=== PATIENT | female | born 2000 | race Caucasian/White ===

== ENCOUNTER 2020-04-12 14:08 | Outpatient (REF) | payer MEDICAID, SELFPAY | END 2020-04-12 14:09 | disposition home or self-care (01) | LOC: HO.LAB 14:08 | PROVIDERS: Visit Provider Internal Medicine | DX: Z20.828 Contact with and (suspected) exposure to other viral communicable diseases (principal) | CPT/HCPCS: C9803; U0003 ==

== ENCOUNTER 2020-05-29 20:55 | Emergency (ER) | payer MEDICAID, SELFPAY ==
--- NOTE | ~2020-05-29 | XR_ITS ---
EXAMINATION: XR FOOT, RIGHT CLINICAL INFORMATION: Trauma. Fall. COMPARISON: None TECHNIQUE: AP, lateral, and oblique views of the right foot. FINDINGS: The bones and soft tissues are normal. No fracture. Alignment is anatomic. Joint spaces are maintained. XR/XR foot RT min 3V IMPRESSION: Normal right foot.
[2020-05-29 22:28] VITALS: BP 117/72; PULSE 75; RESP 18; TEMP 36.7; O2SAT 100; BMI 29.5
--- NOTE | 2020-05-29 22:37 | ED.LOWEXIN ---
HPI - Extremity Injury (Lower) General Chief Complaint: Extremity Injury, Lower Stated Complaint: FALL Time Seen by Provider: 05/29/20 22:37 Source: patient Mode of arrival: ambulatory Limitations: no limitations History of Present Illness HPI Narrative: Patient slipped on black ice just prior to arrival complaining of pain in the right foot no deformity no other injuries Related Data Previous Rx's Medication Instructions Recorded ibuprofen 600 mg PO Q6H PRN #20 tab 05/29/20 Allergies Allergy/AdvReac Type Severity Reaction Status Date / Time No Known Allergies Allergy Verified 05/29/20 22:31 [No Known Allergies*] Review of Systems Review of Systems: Yes all other systems are reviewed and are negative PMFSH Past Medical History Medical History Patient denies significant medical history Surgical History No significant past surgical history Social History Social History Advance Directives: No Physical Exam Vital Signs: Vital Signs: Last Vital Signs Temp 98.0 F 05/29/20 22:28 Pulse 70 05/29/20 23:21 Resp 18 05/29/20 23:21 BP 120/70 05/29/20 23:21 Pulse Ox 98 05/29/20 23:21 Body Mass Index 29.5 Const: General: comfortable and no acute distress HENMT: Head: Yes normocephalic and Yes atraumatic Extrem: Ankle/foot/toe images: 1. Diffuse tenderness no deformity neurovascularly intact MDM - Extremity Injury (Lower) MDM Narrative Medical decision making narrative: Patient x-ray negative for any fracture discharge patient home on ibuprofen and apply Ejsu wrap Discharge Plan Discharge Clinical Impression: Sprain of foot, right Patient Disposition: Home, Self-Care Instructions: Foot Sprain (ED) Prescriptions: New ibuprofen 600 mg tablet 600 mg PO Q6H PRN (Reason: pain) Qty: 20 RF: 0 Stand Alone Forms: Work/School Release Interventions: ED Discharge Assessment Last Done: 05/29/20 23:41 Discharge Date/Time: 05/29/20 23:42 Print Language: Bengali
[2020-05-29] MEDS: Ibuprofen 600 MG TABLET PO (23:10)
[2020-05-29 23:21] VITALS: BP 120/70; PULSE 70; RESP 18; O2SAT 98
== END 2020-05-29 23:42 | disposition home or self-care (01) ==
PROVIDERS: Emergency Provider Internal Medicine
DX: S93.601A Unspecified sprain of right foot, initial encounter (principal); W00.0XXA Fall on same level due to ice and snow, initial encounter; Y93.9 Activity, unspecified; Y92.014 Private driveway to single-family (private) house as the place of occurrence of the external cause; Y99.9 Unspecified external cause status
CPT/HCPCS: 73630; 99283; 99284

== ENCOUNTER 2022-01-27 09:41 | Outpatient (REF) | payer MEDICAID, SELFPAY ==
[2022-01-27 11:42] LABS: Estimated Average Glucose 97 mg/dL
[2022-01-27 11:58] LABS: Alanine Aminotransferase 8 U/L (0-31); Albumin Level 4.4 g/dL (3.5-5.0); Alkaline Phosphatase 52 U/L (39-117); Anion Gap 15 (12-20); Aspartate Amino Transferase 15 U/L (5-31); Bilirubin Total 0.4 mg/dL (0.0-1.0); Blood Urea Nitrogen 6 mg/dL (9-16); Calcium 9.5 mg/dL (8.4-10.2); Carbon Dioxide 27 mmol/L (22-29); Chloride 104 mmol/L (96-108); Cholesterol 138 mg/dL; Estimated Glomerular Filt Rate > 60; Glucose Random 100 mg/dL (60-115); HDL Cholesterol 27 mg/dL; LDL Cholesterol Calculated 91 mg/dl; Potassium 4.4 mmol/L (3.3-5.1); Sodium 142 mmol/L (135-145); Total Protein 7.8 g/dL (6.5-8.0); Triglycerides 103 mg/dL
== END 2022-01-27 09:42 | disposition home or self-care (01) ==
LOC: HO.LAB 09:41
PROVIDERS: Visit Provider General Practice
DX: E66.3 Overweight (principal)
CPT/HCPCS: 36415; 80053; 80061; 83036

== ENCOUNTER 2022-05-27 09:51 | Emergency (ER) | payer MEDICAID, SELFPAY ==
--- NOTE | ~2022-05-27 | CT_ITS ---
EXAMINATION: CT abdomen pelvis w IV con CLINICAL INFORMATION: Abdominal pain COMPARISON: No prior CT available for comparison. TECHNIQUE: Multidetector volumetric imaging was performed from the superior aspect of the liver through the pubic symphysis 85 mL Omnipaque 350 injected. Sagittal and coronal reformatted images were obtained on the technologist's workstation. This CT examination was performed using dose optimization techniques as appropriate, variously including the following: *Automated exposure control *Adjustment of mA and/or kV according to patient size (this includes techniques or standardized protocols for targeted exams where dose is matched to indication/reason for exam; i.e. extremities or head) *Use of iterative reconstruction technique DLP: 341. mGy-cm FINDINGS: LOWER THORAX: Included lung bases are clear. HEPATOBILIARY: No focal hepatic lesions. No biliary ductal dilatation. GALLBLADDER: Gallbladder unremarkable. SPLEEN: Spleen is normal in size. PANCREAS: No focal mass or ductal dilatation. STOMACH AND GASTROINTESTINAL TRACT: Stomach is grossly unremarkable. Excess amount of stool in the colon and rectum suggests constipation. No CT evidence of appendicitis. ADRENALS: No adrenal nodules. KIDNEYS/URETERS: No hydronephrosis, stones or solid mass lesions. URINARY BLADDER: Partially decompressed. PELVIC VISCERA: Unremarkable PERITONEUM: No free air or fluid. LYMPH NODES: No lymphadenopathy. VASCULAR:Abdominal aorta normal in size, no aneurysm found. BONES, ABDOMINAL WALL AND SOFT TISSUES: Age-appropriate changes of the spine and skeletal system, no destructive osteolytic or osteosclerotic bone lesion found CT/CT abdomen pelvis w IV con IMPRESSION: * No CT evidence of acute intra-abdominal process to explain patient's pain symptoms. * Excess amount of stool in the colon and rectum suggests constipation.
[2022-05-27 09:54] VITALS: BP 96/44; PULSE 90; RESP 16; TEMP 36.9; O2SAT 98; BMI 23.0
[2022-05-27 10:05] LABS: MANUAL DIFF FLAG NO
[2022-05-27 10:07] LABS: Basophils Percent Auto 0.1 % (0-2); Eosinophils Percent Auto 0.3 % (0-4); Hematocrit 38.5 % (37.0-47.0); Hemoglobin 13.2 g/dl (12.0-16.0); Imm Gran Abs Auto 0.05 X10*3/uL (0.00-0.03); Imm Gran Pct Auto 0.4 % (0.0-0.4); Lymphocytes Absolute Auto 1.1 X10*3/uL (1.2-4.9); Lymphocytes Percent Auto 7.7 % (20-40); Mean Corpuscular HGB Conc 34.3 g/dl (31.0-35.0); Mean Corpuscular Hemoglobin 30.6 pg (27.0-33.0); Mean Corpuscular Volume 89.3 fL (80.0-98.0); Mean Platelet Volume 10.2 fL (9.4-12.3); Monocytes Absolute Auto 0.9 X10*3/uL (0.1-1.2); Monocytes Percent Auto 6.4 % (2-11); Neutrophils Absolute Auto 11.8 x10*3/uL (2.0-8.3); Neutrophils Percent Auto 85.1 % (45-73); Platelet Count 148 X10*3/uL (160-400); Red Blood Count 4.31 X10*6/uL (4.20-5.50); Red Cell Distribution Width 12.4 % (11.0-16.0); White Blood Count 13.9 X10*3/uL (4.8-10.8)
[2022-05-27 10:30] LABS: Anion Gap 14 (12-20); Blood Urea Nitrogen 7 mg/dL (9-16); Carbon Dioxide 24 mmol/L (22-29); Chloride 107 mmol/L (96-108); Creatinine Clr Calc Pharmacy 84.6; Estimated Glomerular Filt Rate > 60; Glucose Random 98 mg/dL (60-115); Sodium 141 mmol/L (135-145)
[2022-05-27 10:44] LABS: Influenza A PCR NEGATIVE (Negative); Influenza B PCR NEGATIVE (Negative); Resp Syncy Virus RNA Qual PCR NEGATIVE (Negative); SARS COV2 PCR INHOUSE NEGATIVE (Negative)
[2022-05-27] MEDS: 0.9 % Sodium Chloride 1,000 ML 999 ML IVCONT (10:56)
[2022-05-27 10:58] LABS: Alanine Aminotransferase 7 U/L (0-31); Albumin Level 4.3 g/dL (3.5-5.0); Alkaline Phosphatase 41 U/L (39-117); Aspartate Amino Transferase 13 U/L (5-31); Bilirubin Direct 0.3 mg/dL (0.0-0.5); C Reactive Protein 0.26 mg/dL (< or = 0.50); Lipase 21 U/L (8-78); Magnesium 1.6 mg/dL (1.6-2.6); Total Protein 7.1 g/dL (6.5-8.0)
[2022-05-27 11:00] LABS: HCG Quantitative < 2 mIU/mL
[2022-05-27 11:13] VITALS: TEMP 37.8
[2022-05-27] MEDS: Acetaminophen 325 MG TABLET 975 MG PO (11:13)
[2022-05-27] MEDS: ondansetron HCL 4 MG/2 ML VIAL IVPUSH (11:13)
[2022-05-27] MEDS: Ketorolac Tromethamine 30 MG/ML VIAL IVPUSH (11:13)
[2022-05-27 11:25] LABS: Erythrocyte Sedimentation Rate 8 MM/HR (0-20)
[2022-05-27 11:26] LABS: IDNOW Serial# 6674DD1D; Strep A Nucleic Acid Positive (Negative)
--- NOTE | 2022-05-27 11:31 | ED.ABDPAIN ---
HPI - Abdominal Pain General Chief Complaint: Abdominal Pain Stated Complaint: fever, flu like symptoms Time Seen by Provider: 05/27/22 10:31 Source: patient and family (Significant other at bedside) Mode of arrival: ambulatory Limitations: no limitations History of Present Illness HPI narrative: 21yoF c No Sig PMHx of PSHx who is presenting to the ER with her significant other at bedside with complaints of fevers, chills, fatigue, malaise, headaches, dizziness, sore throat, nausea/vomiting and left lower quadrant abdominal pain. She reports that the abdominal pain started approximately 1 week ago and has been intermittent. She reports the other symptoms started yesterday. She reports her co-worker did test positive for influenza recently. Otherwise she denies any other sick contacts. She denies any measured neck pain/stiffness, ear pain, cough, sputum production, trouble swallowing or breathing, chest pain or shortness of breath, back pain, flank pain, dysuria, hematuria, abnormal vaginal discharge, black or bloody stools, rashes, recent antibiotic usage, possible bad food exposure, rashes or any other symptoms complaints or concerns at this time. MD elicited complaint: abdominal pain Onset (ago): week(s) (1) Pain Consistency: intermittent Location: LLQ Severity: moderate Quality: cramping and aching Radiation: none Migration to: no migration Exacerbating factors: nothing Relieving factors: nothing Context: sick contacts (Co-worker tested positive for influenza patient reports) Associated symptoms: nausea, vomiting, fever, chills and other (Sore throat) Related Data Previous Rx's Medication Instructions Recorded ibuprofen 600 mg tablet 600 mg PO Q6H PRN pain #20 tabs 05/29/20 acetaminophen 500 mg tablet 1,000 mg PO QID PRN fever or pain 05/27/22 (Tylenol Extra Strength) #14 tabs amoxicillin 875 mg-potassium 1 tab PO BID 10 days #20 tabs 05/27/22 clavulanate 125 mg tablet docusate sodium 50 mg capsule 50 mg PO BID For constipation #14 05/27/22 (Colace Clear) caps ibuprofen 800 mg tablet 800 mg PO Q8H PRN pain #14 tabs 05/27/22 ondansetron HCl 4 mg tablet 4 mg PO Q8H #14 tabs 05/27/22 polyethylene glycol 3350 17 17 g PO DAILY Constipation #119 05/27/22 gram/dose oral powder (Miralax) grams Allergies Allergy/AdvReac Type Severity Reaction Status Date / Time No Known Allergies Allergy Verified 05/29/20 22:31 [No Known Allergies*] Review of Systems Review of Systems Constitutional : + fevers/chills/fatigue/malaise, No Weight loss, No Night Sweats ENT/Mouth : + sore throat, No Hearing loss, No Ear Pain, No Nasal Congestion, No Sinus Pain, No Hoarseness,No Rhinorrhea, No Swallowing Difficulty Eyes: No Eye Pain, No Swelling, No Redness, No Foreign Body, No Discharge, No Vision Changes Cardiovascular : No Chest Pain, No SOB, No Dyspnea on Exertion, No Orthopnea, No Edema, No Palpitations Respiratory : No Cough, No Sputum, No Wheezing, No Smoke Exposure, No Dyspnea Gastrointestinal : + Nausea, + Vomiting, No Diarrhea, No Constipation, + abdominal Pain, No Hematochezia, No Melena Genitourinary : no irregular bleeding, No Dysuria, No Urinary Frequency, No Hematuria, No Urinary Incontinence, No Urgency, No Flank Pain, No Urinary Flow Changes, No Hesitancy Musculoskeletal : No joint pain, + Myalgias, No Joint Swelling Skin : No Skin Lesions, No rash Neuro : No Weakness, No Numbness, No Paresthesias, No Loss of Consciousness, + Dizziness, + Headache Psych : No Anxiety/Panic, No Depression, No SI/HI/AH/VH, No Social Issues, Heme/Lymph: No Bruising, No Bleeding,No Lymphadenopathy Endocrine : No Polyuria, No Polydipsia, No Temperature Intolerance Yes all other systems are reviewed and are negative [facility] Past Medical History Attestation statement: The following information was validated with the patient. Source: old records reviewed, obtained from family and nursing notes reviewed Medical History Patient denies significant medical history Surgical History No significant past surgical history Social History Social History Advance Directives: No Advance Directives Information Provided: Yes Physical Exam ED Vital Signs: Vital Signs - 24 hr 05/27/22 09:54 05/27/22 11:13 Temperature 98.5 F 100.1 F Pulse Rate 90 Respiratory Rate 16 Blood Pressure 96/44 L Pulse Oximetry 98 Oxygen Delivery Method Room Air BMI result Body Mass Index 23.0 Vital signs have been reviewed and blood pressure 96/44. Pulse 90. Respirations 16. Temperature 98.5 degrees. Oxygen 98% on room air. Appearance: Alert. Oriented X3. No acute distress. Head: Normal external exam. Normocephalic. Eyes: PERRLA. EOMI. Conjunctiva and sclera normal. Eyelids normal. ENT: TM WNL. EAC WNL. Posterior pharynx and bilateral tonsil mildly edematous and erythematous with scattered exudate noted bilaterally. Normal soft and hard palate. Uvula midline. Moist mucous membranes. No trismus noted. No drooling noted. No muffled voice noted. Normal voice. Tolerating secretions well. Neck: Normal inspection. Neck supple. FROM. No adenopathy. No meningeal signs. CVS: Normal heart rate and rhythm. Heart sound normal. No murmurs noted. Pulses normal throughout. Respiratory: No respiratory distress. Painless inspiration. Breath sounds normal. No wheezes/rales/rhonchi noted. Chest nontender. No accessory muscle usage noted or decreased air movement noted. Abdomen: Soft and moderate tenderness palpation with guarding to the left lower quadrant. Nondistended. No rigidity. Bowel sounds normal in all 4 quadrants. No distention noted. No organomegaly noted. No visible injury noted. No rebound tenderness. Negative Rovsing sign. Negative obturator's sign. Negative psoas sign. Negative Forrest sign. Back: No CVA tenderness. Full range of motion noted. Skin: Skin warm and dry. Normal skin color. Normal skin turgor. No rashes/lesions/lacerations noted. Extremities: Extremities exhibit normal range of motion. Extremities nontender. Neuro: Oriented X 3. No motor deficit. No sensory deficit. Reflexes normal. Normal steady gait. CN's II-XII intact bilaterally? Course Course Course Narrative: 10am - 21yoF presenting to the ER with complaints of fevers, chills, fatigue, malaise, headaches, dizziness, sore throat, nausea/vomiting and left lower quadrant abdominal pain. She reports that the abdominal pain started approximately 1 week ago and has been intermittent. She reports the other symptoms started yesterday. She reports her co-worker did test positive for influenza recently. Differential diagnosis includes: Bacterial pharyngitis versus viral syndrome such as influenza or COVID or RSV versus diverticulitis versus UTI/pyelonephritis. Abdominal exam without peritoneal signs. No evidence of acute abdomen at this time. Well appearing. Low suspicion for acute hepatobiliary disease (includng acute cholecystitis), acute pancreatitis, PUD (including perforation), acute infectious processes (pneumonia, hepatitis), acute appendicitis, vascular catastrophe, bowel obstruction or viscus perforation. Presentation not consistent with other acute, emergent causes of abdominal pain at this time. Plan: Will obtain labs, UA, UHCG, COVID/RSV/flu swab, rapid strep, CT scan abdomen pelvis with IV contrast. Provide 975 mg of p.o. Tylenol, 4 mg of Zofran and 30 mg of IM Toradol along with a L of IV fluids and re-evaluate. Reevaluation(s) Reevaluation #1: Labs reviewed - leukocytosis of 13,000. - platelet count 148. - BUN 7. - patient positive for strep. - patient negative for COVID/RSV/flu. otherwise all other labs are within normal limits. Imaging pending at this time. Time: 11:41 Reevaluation #2: CT scan abdomen pelvis revealed excessive amount of stool in the colon and rectum suggest constipation otherwise no other acute intra-abdominal process to explain the patient's pain. Patient's UA is within normal limits. Therefore at this time patient with bacterial pharyngitis. She is now tolerating p.o. fluids as solids. She will be discharged with antibiotics and symptomatic treatment instructions return if any new or worsening symptoms to follow up with primary care provider. Patient with significant other at bedside understand agree this plan. Time: 12:23 Medical Decision Making Lab Data [facility] Lab Attestation statement: I reviewed the patient's lab results. 05/27/22 09:58 05/27/22 09:58 Labs: Lab Results 05/27/22 05/27/22 05/27/22 Range/Units 09:58 09:58 09:58 WBC 13.9 H (4.8-10.8) X10*3/uL RBC 4.31 (4.20-5.50) X10*6/uL Hgb 13.2 (12.0-16.0) g/dl Hct 38.5 (37.0-47.0) % MCV 89.3 (80.0-98.0) fL MCH 30.6 (27.0-33.0) pg MCHC 34.3 (31.0-35.0) g/dl RDW 12.4 (11.0-16.0) % Plt Count 148 L (160-400) X10*3/uL MPV 10.2 (9.4-12.3) fL Immature Gran % (Auto) 0.4 (0.0-0.4) % Neut % (Auto) 85.1 H (45-73) % Lymph % (Auto) 7.7 L (20-40) % [place] % (Auto) 6.4 (2-11) % Eos % (Auto) 0.3 (0-4) % Baso % (Auto) 0.1 (0-2) % Lymph # (Auto) 1.1 L (1.2-4.9) X10*3/uL [place] # (Auto) 0.9 (0.1-1.2) X10*3/uL Eos # (Auto) 0.0 (0.0-0.4) X10*3/uL Baso # (Auto) 0.0 (0.0-0.2) X10*3/uL Abs Immat Gran (auto) 0.05 H (0.00-0.03) X10*3/uL Absolute Neuts (auto) 11.8 H (2.0-8.3) x10*3/uL Absolute Nucleated RBC 0.000 (0.0-0.012) X10*3/uL Nucleated RBC % (auto) 0.0 (0.0-0.2) /100WBC ESR (0-20) MM/HR Sodium 141 (135-145) mmol/L Potassium 4.0 (3.3-5.1) mmol/L Chloride 107 (96-108) mmol/L Carbon Dioxide 24 (22-29) mmol/L Anion Gap 14 (12-20) BUN 7 L (9-16) mg/dL Creatinine 0.78 (0.5-1.4) mg/dL Estim Creat Clear Calc 84.6 Estimated GFR > 60 Random Glucose 98 (60-115) mg/dL Calcium 9.0 (8.4-10.2) mg/dL Magnesium 1.6 (1.6-2.6) mg/dL Total Bilirubin 1.0 (0.0-1.0) mg/dL Direct Bilirubin 0.3 (0.0-0.5) mg/dL AST 13 (5-31) U/L ALT 7 (0-31) U/L Alkaline Phosphatase 41 (39-117) U/L C-Reactive Protein 0.26 (< or = 0.50) mg/dL Total Protein 7.1 (6.5-8.0) g/dL Albumin 4.3 (3.5-5.0) g/dL Lipase 21 (8-78) U/L Beta HCG, Quant < 2 mIU/mL Urine Color Urine Appearance Urine pH (5.0-9.0) Ur Specific [place] (1.005-1.025) Urine Protein (Neg-Trace) mg/dL Urine Glucose (UA) (Negative) mg/dL Urine Ketones (Negative) mg/dL Urine Blood (Negative) Urine Nitrite (Negative) Ur Leukocyte Esterase (Negative) Influenza Type A (PCR) NEGATIVE (Negative) Influenza Type B (PCR) NEGATIVE (Negative) RSV RNA Qual (PCR) NEGATIVE (Negative) SARS-CoV-2 RNA (RT-PCR) NEGATIVE (Negative) S. pyogenes GrpA DANIELA (Negative) 05/27/22 05/27/22 05/27/22 Range/Units 09:58 11:17 12:10 WBC (4.8-10.8) X10*3/uL RBC (4.20-5.50) X10*6/uL Hgb (12.0-16.0) g/dl Hct (37.0-47.0) % MCV (80.0-98.0) fL MCH (27.0-33.0) pg MCHC (31.0-35.0) g/dl RDW (11.0-16.0) % Plt Count (160-400) X10*3/uL MPV (9.4-12.3) fL Immature Gran % (Auto) (0.0-0.4) % Neut % (Auto) (45-73) % Lymph % (Auto) (20-40) % [place] % (Auto) (2-11) % Eos % (Auto) (0-4) % Baso % (Auto) (0-2) % Lymph # (Auto) (1.2-4.9) X10*3/uL [place] # (Auto) (0.1-1.2) X10*3/uL Eos # (Auto) (0.0-0.4) X10*3/uL Baso # (Auto) (0.0-0.2) X10*3/uL Abs Immat Gran (auto) (0.00-0.03) X10*3/uL Absolute Neuts (auto) (2.0-8.3) x10*3/uL Absolute Nucleated RBC (0.0-0.012) X10*3/uL Nucleated RBC % (auto) (0.0-0.2) /100WBC ESR 8 (0-20) MM/HR Sodium (135-145) mmol/L Potassium (3.3-5.1) mmol/L Chloride (96-108) mmol/L Carbon Dioxide (22-29) mmol/L Anion Gap (12-20) BUN (9-16) mg/dL Creatinine (0.5-1.4) mg/dL Estim Creat Clear Calc Estimated GFR Random Glucose (60-115) mg/dL Calcium (8.4-10.2) mg/dL Magnesium (1.6-2.6) mg/dL Total Bilirubin (0.0-1.0) mg/dL Direct Bilirubin (0.0-0.5) mg/dL AST (5-31) U/L ALT (0-31) U/L Alkaline Phosphatase (39-117) U/L C-Reactive Protein (< or = 0.50) mg/dL Total Protein (6.5-8.0) g/dL Albumin (3.5-5.0) g/dL Lipase (8-78) U/L Beta HCG, Quant mIU/mL Urine Color Yellow Urine Appearance Clear Urine pH 8.5 (5.0-9.0) Ur Specific [place] >= 1.030 H (1.005-1.025) Urine Protein Negative (Neg-Trace) mg/dL Urine Glucose (UA) Negative (Negative) mg/dL Urine Ketones Negative (Negative) mg/dL Urine Blood Negative (Negative) Urine Nitrite Negative (Negative) Ur Leukocyte Esterase Negative (Negative) Influenza Type A (PCR) (Negative) Influenza Type B (PCR) (Negative) RSV RNA Qual (PCR) (Negative) SARS-CoV-2 RNA (RT-PCR) (Negative) S. pyogenes GrpA DANIELA Positive A (Negative) Independent Interpretation I performed an independent interpretation of an: CT Scan Radiology Impression Discussion of test interpretation with radiology: I have reviewed the radiologist's reading. Radiologist Impression: FINDINGS: LOWER THORAX: Included lung bases are clear. HEPATOBILIARY: No focal hepatic lesions. No biliary ductal dilatation. GALLBLADDER: Gallbladder unremarkable. SPLEEN: Spleen is normal in size. PANCREAS: No focal mass or ductal dilatation. STOMACH AND GASTROINTESTINAL TRACT: Stomach is grossly unremarkable. Excess amount of stool in the colon and rectum suggests constipation. No CT evidence of appendicitis. ADRENALS: No adrenal nodules. KIDNEYS/URETERS: No hydronephrosis, stones or solid mass lesions. URINARY BLADDER: Partially decompressed. PELVIC VISCERA: Unremarkable PERITONEUM: No free air or fluid. LYMPH NODES: No lymphadenopathy. VASCULAR:Abdominal aorta normal in size, no aneurysm found. BONES, ABDOMINAL WALL AND SOFT TISSUES: Age-appropriate changes of the spine and skeletal system, no destructive osteolytic or osteosclerotic bone lesion found CT/CT abdomen pelvis w IV con IMPRESSION: ? *? No CT evidence of acute intra-abdominal process to explain patient's pain symptoms. ? *? Excess amount of stool in the colon and rectum suggests constipation. Independent Historian Clinical information obtained from an independent historian. History obtained from or confirmed by: Spouse External Record Review External record reviewed: Inpatient record, Office record, Outpatient record, Prior outpatient labs, Prior outpatient radiology, Primary care record and Outside ED record Prescription Management I considered prescription management with: Pain Medication and Antibiotic Medications Administered Discontinued Medications Generic Name Dose Route Start Last Admin Trade Name Freq PRN Reason Stop Dose Admin Acetaminophen 975 mg 05/27/22 10:56 05/27/22 11:13 Acetaminophen 325 Mg Tablet PO 05/27/22 10:57 975 mg ONCE ONE Administration Sodium Chloride 1,000 mls @ 999 mls/hr 05/27/22 10:45 05/27/22 10:56 Ns IVCONT 05/27/22 11:45 999 mls/hr .Q1H1M HARVEY Administration Iohexol 100 ml 05/27/22 11:36 05/27/22 11:38 Iohexol 350 Mg/Ml 100 Ml Infus..Btl IV 05/27/22 11:37 85 ml ONCE ONE Administration Ketorolac Tromethamine 30 mg 05/27/22 10:57 05/27/22 11:13 Ketorolac Tromethamine 30 Mg/Ml Vial IVPUSH 05/27/22 10:58 30 mg ONCE ONE Administration Ondansetron HCl 4 mg 05/27/22 10:57 05/27/22 11:13 Ondansetron Hcl 4 Mg/2 Ml Vial IVPUSH 05/27/22 10:58 4 mg ONCE ONE Administration Discharge Plan Discharge Clinical Impression: Acute bacterial pharyngitis, Constipation Patient Disposition: Home, Self-Care Instructions: Constipation (ED), Pharyngitis (ED) Prescriptions: New amoxicillin-pot clavulanate 875-125 mg tablet 1 tab PO BID 10 Days Qty: 20 0RF acetaminophen [Tylenol Extra Strength] 500 mg tablet 1,000 mg PO QID PRN (Reason: fever or pain) Qty: 14 0RF ondansetron HCl 4 mg tablet 4 mg PO Q8H Qty: 14 0RF ibuprofen 800 mg tablet 800 mg PO Q8H PRN (Reason: pain) Qty: 14 0RF Colace Clear 50 mg capsule 50 mg PO BID Qty: 14 0RF polyethylene glycol 3350 [Miralax] 17 gram/dose powder 17 g PO DAILY Qty: 119 0RF No Action ibuprofen 600 mg tablet 600 mg PO Q6H PRN (Reason: pain) Qty: 20 0RF Referrals: [facility] [Primary Care Provider] - 2 days Stand Alone Forms: Work/School Release
[2022-05-27] MEDS: iohexoL 350 MG/ML 100 ML INFUS..BTL IV (11:38)
[2022-05-27 12:19] LABS: Appearance Urine Clear; Color Urine Yellow; Glucose Urine UA Negative (Negative); Leukocyte Esterase Urine Negative (Negative); Nitrite Urine Negative (Negative); PH 8.5 (5.0-9.0); Specific Gravity - Urine >= 1.030 (1.005-1.025); Urine Blood Negative (Negative); Urine Ketones Negative (Negative); Urine Protein Negative (Neg-Trace)
== END 2022-05-27 12:37 | disposition home or self-care (01) ==
PROVIDERS: Physician Assistant Medical; Emergency Provider Student in an Organized Health Care Education/Training Program
DX: R50.9 Fever, unspecified (principal); R10.32 Left lower quadrant pain; M79.10 Myalgia, unspecified site; K59.00 Constipation, unspecified; Z20.822 Contact with and (suspected) exposure to COVID-19; Z79.899 Other long term (current) drug therapy
CPT/HCPCS: 0241U; 36415; 74177; 80048; 80076; 81003; 83690; 83735; 84702; 85025; 85652; 86140; 87651; 96361; 96374; 96375; 99284; J1885; J2405; Q9967

== ENCOUNTER 2024-09-07 11:16 | Outpatient (REF) | payer SELFPAY ==
--- OUTSIDE RECORDS SUMMARY | 2024-09-07 12:01 | XMS_ITS | Encounter Summary ---
Author Organization [employer] Address [address] [place] [address] 7 [place] [address] Care Team Providers Care Gas Burner Operator Name Role Phone Kristy Cain MD Primary Care Provider [phone] Reason for Referral * Imaging (STAT) - Pending Review Specialty Diagnoses / Procedures Referred By Contac t Referred To Contact Radiology Diagnoses Abdominal pain in female , unspecified gestational age Procedures US OB Transvaginal Agustina Squires MD [address] [place] [address] Phone: tel: fax: [address] Phone: tel: fax: Referral ID Status Reason Start Date Expiration Date V isits Requested Visits Authorized [id number] Pending Review 09/07/2024 09/07/2025 1 1 * Consultation (Routine) - Pending Review Specialty Diagnoses / Procedures Referred By Contac t Referred To Contact Obstetrics and Gynecology Diagnoses Abdominal pain in female , unspecified gestational age Agustina Squires MD [address] [place] [phone] Phone: tel: fax: Referral ID Status Reason Start Date Expiration Date Visits Requested Visits Authorized [id number] Pending Review Specialty Services Required 09/07/2024 09/07/2025 1 1 Reason for Visit * Reason Comments Abdominal Pain Encounter Details Date Type Department Care Team (Late st Contact Info) Description 09/07/2024 10:00 AM EDT [facility] [address] [address] , unspecified gestational age (Primary Dx); Abdominal pain in female Social History Tobacco Use Types Packs/Day Years Used Date Smoking Tobacco: Never Passive Smoke Exposure: Never Smokeless Tobacco: Never Alcohol Use Standard Drinks/Week Comments Never 0 (1 standard drink = 0.6 oz pur e alcohol) Housing Stability Answer Date Recorded What is your housing situation today? I have stella sheridan 10/28/[address] you li ve. Do you have problems with any of the following? None of the above 10/28/2023 Food Insecurity Answer Date Recorded Within the past 12 months, y ou worried that your food would run out before you got money to buy more: Never True 10/28/2023 Within the past 12 months,th e food you bought just didn't last and you didn't have enough money to get more: Never True 11/2023 Transportation Answer Date Recorded In the past 12 months, has l ack of transportation kept you from medical appts, meetings, work or from getting things needed for daily living? No 10/28/2023 Utilities Answer Date Recorded In the past 12 months, has t he electric, gas, oil or water company threatened to shut off services in your home? No 10/28/2023 Internet Access Answer Date Recorded Internet Access Q1 Yes 12/23/2023 Internet Access Q2 Not on file 12/23/2023 Comments No Sex and Gender Information Value Date Recorded Sex Assigned at Female 02/19/2022 10:27 AM EDT Legal Sex Female 10:27 AM EDT Gender Identity Female 02/19/2022 10:27 AM EDT Sexual Orientation Straight 02/19/2022 10 :27 AM EDT documented as of this encounter Last Filed Vital Signs Vital Sign Reading Time Taken Comments Blood Pressure 113/74 09/07/2024 9:45 AM EDT Pulse 72 09/07/2024 9:45 AM EDT Temperature 36.8 ??C (98.2 ??F) 09/07/2024 9:45 AM ED T Respiratory Rate 16 09/07/2024 9:45 AM EDT Oxygen Saturation 99% 09/07/2024 9:45 AM EDT Inhaled Oxygen Concentration - - Weight 60.3 kg (133 lb) 09/07/2024 9:45 AM EDT Height - - Body Mass Index 25.13 11/26/2022 2:41 PM EDT documented in this encounter Plan of Treatment Upcoming Encounters Date Type Department Care Team (Late st Contact Info) Description 09/21/2024 1:30 PM EDT Office Visit [facility] [address] [place] [address] [phone] Kristy Cain MD [address] [place] [address] [phone] 10/09/2024 11:00 AM EDT Procedure Visit [facility] [address] [place] [address] [phone] Kristy Cain MD [address] [place] [address] [phone] Scheduled Orders Name Type Priority Associated Diagnoses Orde r Schedule Chlamydia/N. Gonorrhoeae RNA, TMA, Urogenitial Microbiology Routine Abdominal pain in female Ordered: 09/07/2024 hCG, Total, Quantitative Lab Routine , unspecified gestational age Expected: 09/07/2024 (Approximate), Expires: 09/07/2025 US OB Transvaginal Imaging STAT Abdominal pain in female , unspecified gestational age Expected: 09/07/2024, Expires: 09/07/2025 Scheduled Referrals Name Type Priority Associated Diagnoses Orde r Schedule Referral to Obstetrics / Gynecology Outpatient Referral Routine Abdominal pain in female , unspecified gestational age Expected: 09/07/2024 (Approximate), Expires: 09/07/2025 documented as of this encounter Procedures Procedure Name Priority Date/Time Associated Diagnosis Comments POCT URINALYSIS DIPSTICK Routine 09/07/2024 10:43 AM EDT Abdominal pain in female documented in this encounter Results * POCT urinalysis dipstick manually resulted (09/07/2024 10:43 AM EDT) Color, UA Yellow Clarity, UA Clear Glucose, UA Negative Bilirubin, UA Negative Ketones, UA Negative Spec Grav, UA 1.020 Blood, UA Negative Negative, None Detected pH, UA 7.0 Protein, UA Negative Urobilinogen, UA 0.2 Leukocytes, UA Negative Negative, Rare, Trace Nitrite, UA Negative Negative, None Detected Appearance, UA OK Urine 09/07/2024 10:4 3 AM EDT Agustina Squires MD POINT OF CARE TEST ENTER/EDIT ORDERABLES Final Result documented in this encounter Visit Diagnoses Diagnosis , unspecified gestational age- Primary Abdominal pain in female documented in this encounter Care Teams Gas Burner Operator Relationship Specialty Start Date End Date Kristy Cain MD [address] [place] [address] PCP - General Family Medicine 12/25/19 documented as of this encounter
--- OUTSIDE RECORDS SUMMARY | 2024-09-07 12:01 | XMS_ITS | Encounter Summary ---
Author Organization [employer] Address [address] [place] [address] Care Team Providers Care Conventions Assistant Name Role Phone Kristy Cain MD Primary Care Provider [phone] Encounter Details Date Type Department Care Team (Latest Contact Info) Description 09/07/2024 Travel Social History Tobacco Use Types Packs/Day Years [...] AM EDT documented as of this encounter Plan of Treatment Upcoming Encounters Date Type Department Care Team (Late st Contact Info) Description 09/21/2024 1:30 PM EDT Office Visit [facility] [address] [place] [phone] Kristy Cain MD [address] [place] [phone] 10/09/2024 11:00 AM EDT Procedure Visit [facility] [address] [place] [phone] Kristy Cain MD [address] [place] [phone] documented as of this encounter Visit Diagnoses Not on filedocumented in this encounter Care Teams Conventions Assistant Relationship Specialty Start Date End Date Kristy Cain MD [address] [place] [address] [phone] PCP - General Family Medicine 12/25/19 documented as of this encounter
--- OUTSIDE RECORDS SUMMARY | 2024-09-07 12:01 | XMS_ITS | Clinical Summary ---
Author Organization [employer] Address [address] [facility] 7t [place] [address] Care Team Providers Care Animator Name Role Phone Kristy Cain MD Primary Care Provider [phone] Allergies No known active allergies Medications acetaminophen (Tylenol) 325 MG tablet take 2 tablet by oral route every 6 hours as needed 021 Active Drospirenone (Slynd) 4 MG tabletIndication s:General counseling and advice on contraceptive management Take 4 mg by mouth in the morning for 28 days. 28 tablet 3 022 Active etonogestrel-eth inyl estradiol (NuvaRing) 0.12-0.015 MG/24HR vaginal ring Insert vaginally and leave in place for 3 consecutive weeks, then remove for 1 week. Discard old ring. Repeat cycle. 1 Ring 11 023 Active Acetaminophen Extra Strength 500 MG tablet TAKE 2 TABLETS BY MOUTH 4 TIMES A DAY NEEDED FOR PAIN OR FEVER 023 Active Laura 30 MG tablet TAKE 1 TABLET SOON POSSIBLE WITHIN 5 DAYS AFTER UNPROTECTED SEX OR IF YOU HAD A CONTROL FAILURE. MAY BE TAKEN WITH OR WITHOUT FOOD. 022 Active acetaminophen-co deine (Tylenol w/ Codeine #3) 300-30 MG tablet TAKE 1 TABLET BY MOUTH EVERY 6 TO 8 HOURS NEEDED 023 Active amoxicillin (Amoxil) 500 MG capsule TAKE 1 CAPSULE BY MOUTH THREE TIMES DAILY FOR 7 DAYS 023 Active loratadine (Claritin) 10 MG tabletIndication s:Allergy to plant Take 1 tablet (10 mg) by mouth in the morning. 30 tablet 023 Active diphenhydrAMINE (BENADryl) 25 MG tabletIndication s:Allergy to plant Take 1 tablet (25 mg) by mouth every 8 (eight) hours if needed for allergies. 30 tablet 2 023 Active amoxicillin (Amoxil) 500 MG capsuleIndicatio ns:Strep pharyngitis Take 1 tab po bid for 10 days 20 capsule 024 Active Vit-Fe Fumarate-FA ( Vitamins) 28-0.8 MG tabletIndication s:, unspecified gestational age Take 1 tablet by mouth in the morning. 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/2022 Assessment & Plan (11/29/2022 4:55 PM EDT): Exposure to marijuana flower at work seems to trigger this - has not improved with Damaris or Cetirizine - will trail Loratadine and Benadryl - consider other lines of work as occupational exposure is the main trigger of her allergies Encounters Date Type Department Care Team Description 09/07/2024 10:00 AM EDT Office Visit [facility] [address] [place] [phone] , unspecified gestational age (Primary Dx); Abdominal pain in female 09/07/2024 Travel 06/30/2024 Telephone [facility] [address] [place] [phone] Kristy Cain MD Appointment Request 06/30/2024 Telephone [facility] [address] [place] [phone] Kristy Cain MD Nurse Triage from Last 3 Months Immunizations Immunization Administration Dates Next Due DTaP 12/01/1999, 9,03/06/1999,01/03 DTaP, 5 pertussis antigens 08/31/2002 HPV 9-Valent 12/08/2009 HPV, Unspecified 11/13/2011,05/24/2011 Hep A, ped/adol, 2 dose 05/24/2011,11/16/2010 Hep B, Adolescent or Pediatric 03/06/1999,1998,1998 HiB, unspecified 12/01/1999,03/06/1999, 9 Hib (PRP-T) 03/23/1999 IPV 08/21/2002, 9,01/03/1999,10/31 Influenza injectable quadriv alent IIV4 with preservative 04/17/2018 Influenza injectable quadriv alent preservative free 02/26/2020,01/16/2017 MMR 12/01/1999,08/31/1999 Meningococcal MCV4P [id number]-135 10/17/2015,09/15/19 10 Tdap 04/17/2018,09/14/2009 Varicella 09/14/2009,08/31/1999 Social History Tobacco Use Types Packs/Day Years Used Date Smoking Tobacco: Never Passive Smoke Exposure: Never Smokeless Tobacco: Never Tobacco Cessation:Counseling Given: Not Answered Alcohol Use Standard Drinks/Week Comments Never 0 [...] Orientation Straight 02/19/2022 10 :27 AM EDT Last Filed Vital Signs Vital Sign Reading Time Taken Comments Blood Pressure 113/74 09/07/2024 9:45 AM EDT Pulse 72 09/07/2024 9:45 AM EDT Temperature 36.8 ??C (98.2 ??F) 09/07/2024 9:45 AM ED T Respiratory Rate 16 09/07/2024 9:45 AM EDT Oxygen Saturation 99% 09/07/2024 9:45 AM EDT Inhaled Oxygen Concentration - - Weight 60.3 kg (133 lb) 09/07/2024 9:45 AM EDT Height 154.9 cm (5' 1 ) 11/26/2022 2:41 PM EDT Body Mass Index 25.13 11/26/2022 2:41 PM EDT Plan of Treatment Upcoming Encounters Date Type Department Care Team (Late st Contact Info) Description 09/21/2024 1:30 PM EDT Office Visit [facility] [address] [place] [phone] Kristy Cain MD [address] [place] [phone] 10/09/2024 11:00 AM EDT Procedure Visit [facility] [address] [place] [phone] Kristy Cain MD [address] [place] [phone] Health Maintenance Due Date Last Done Comments Depression Screening 1998 HIV Screening 1998 Disability Screening 1998 Alcohol/Substance Use Screening 2010 Family Planning (PISQ) 2013 Hepatitis C Screening 2016 COVID-19 Vaccine ( season) 2023 Influenza Vaccine (#1) 2023 , 04/17/2018, 01/16/2017 SDOH Screening 10/27/2024 10/28/2023 Pap Smear 01/15/2025 01/15/2022, 12/22, 01/13/2021, Additional history exists Tobacco Screening 09/07/2025 09/07/2024 DTaP/Tdap/Td Vaccines (7 - Td or Tdap) 04/17/2028 04/17/2018, 09/14/2009, 08/31/2002, Additional history exists Zoster Vaccines (1 of 2) 2048 RSV Patients and Patients Aged 60 years or older (1 - 1-dose 75+ series) 2073 Hepatitis B Vaccines Completed 03/06/1999, 1998, 1998 HIB Vaccines Completed 12/01/1999, 05/1998, 03/06/1999, Additional history exists IPV Vaccines Completed 08/21/2002, 02/20, 01/03/1999, Additional history exists Hepatitis A Vaccines Completed 05/24/2011, 11/17/19 11 HPV Vaccines Completed 11/13/2011, 05/2011, 12/08/2009 Meningococcal Vaccine Completed 10/17/2015, 010 Meningococcal B Vaccine Aged Out No l onger eligible based on patient's age to complete this topic Pneumococcal Vaccine: Pediatrics (0 to 5 Years) and At-Risk Patients (6 to 49) Years) Aged Out No longer eligible based on patient's age to complete this topic RSV under 20 months Aged Out No longe r eligible based on patient's age to complete this topic Rotavirus Vaccines Aged Out No longer eligible based on patient's age to complete this topic Procedures Procedure Name Priority Date/Time Associated Diagnosis Comments POCT URINALYSIS DIPSTICK Routine 09/07/2024 10:43 AM EDT Abdominal pain in female PAP SMEAR Routine 01/15/2022 12:00 AM EDT from Last 3 Months or Most Recently Relevant to Health Maintenance Results * POCT urinalysis dipstick manually resulted [...] OF CARE TEST ENTER/EDIT ORDERABLES Final Result * Pap Smear (01/15/2022 12:00 AM EDT) Swab Kristy Cain MD LAB CYTOLOGY ORDERABLES Final Result [facility] [address], [place] [address] from Last 3 Months or Most Recently Relevant to Health Maintenance Insurance [facility] C3 HSN PARTIAL Care Teams Animator Relationship Specialty Start Date End Date Kristy Cain MD [address] [place] [phone] PCP - General Family Medicine 12/25/19
[2024-09-07 13:34] LABS: HCG Quantitative 1077 mIU/mL
[2024-09-07 14:37] LABS: CT PCR NOT DETECTED (Not Detect.); NG PCR NOT DETECTED (Not Detect.)
== END 2024-09-07 11:17 | disposition home or self-care (01) ==
LOC: HO.HHCL 11:16
PROVIDERS: Visit Provider Internal Medicine
DX: Z34.90 Encounter for supervision of normal pregnancy, unspecified, unspecified trimester (principal); R10.9 Unspecified abdominal pain
CPT/HCPCS: 84702; 87491; 87591

== ENCOUNTER 2024-09-07 15:01 | Outpatient (REF) | payer OTHER, SELFPAY ==
--- NOTE | ~2024-09-07 | US_ITS ---
EXAMINATION: US OBSTETRICAL ULTRASOUND CLINICAL INFORMATION: Abnormal pain. test with bilateral lower quadrant pain. Concerning to ectopic/tubal COMPARISON: None available. LMP: 04/19/2024.. Gestational age by maternal dates is 20 weeks and 1 day. Estimated date of delivery by maternal dates is 01/24/2025. TECHNIQUE: Transabdominal and transvaginal obstetrical pelvic ultrasound performed using grayscale and color Doppler technique. FINDINGS: Uterus measures 12 x 3 x 5 cm. Endometrial stripe measures 1.2 cm. There is a 0.5 cm well-defined thin wall anechoic structure in the fundus of the uterine cavity to the left cornual. No yolk sac or pole. FRED (estimated date of delivery): 05/09/2025 +/- 4 days. MATERNAL ADNEXA: The right maternal ovary measures 5 x 3 x 3 cm. Volume: 13 cc. The left maternal ovary measures 5 x 3 x 3 cm. Volume: 22 cc. There is no significant maternal adnexal mass. No maternal pelvic ascites. US/US OB pelvic and transvaginal IMPRESSION: 0.5 cm anechoic structure without pole or yolk sac sac, possibly empty gestational sac corresponding to 5 weeks and 1 day in the superior uterine fundus/left cornual. Concerning for cornual ectopic A message to the requesting physician using [employer] recommended at 3:57 PM on September 07, 2024. Electronically signed by: Kenneth Diamond MD 09/07/2024 03:58 PM EDT
--- OUTSIDE RECORDS SUMMARY | 2024-09-07 15:03 | XMS_ITS | Encounter Summary ---
Author Organization [employer] Address [address] [facility] 7t [place] [address] Care Team Providers Care Radio Journalist Name Role Phone Kristy Cain MD Primary Care Provider [phone] Encounter Details Date Type Department Care Team (Latest Contact Info) Description 09/07/2024 Travel Social History Tobacco Use Types Packs/Day Years Used Date Smoking Tobacco: Never Passive Smoke Exposure: Never Smokeless Tobacco: Never Alcohol Use Standard Drinks/Week Comments Never 0 (1 standard drink = 0.6 oz pur e alcohol) Housing Stability Answer Date Recorded What is your housing situation today? I have stella fatimah 10/28/[address] you li [...] 1:30 PM EDT Office Visit [facility] [address] [place] [phone] Kristy Cain MD [address] [place] [phone] 10/09/2024 11:00 AM EDT Procedure Visit [facility] [address] [place] [address] [phone] Kristy Cain MD [address] [place] [address] [phone] documented as of this encounter Visit Diagnoses Not on filedocumented in this encounter Care Teams Radio Journalist Relationship Specialty Start Date End Date Kristy Cain MD [address] [place] [address] [phone] PCP - General Family Medicine 12/25/19 documented as of this encounter
--- OUTSIDE RECORDS SUMMARY | 2024-09-07 15:03 | XMS_ITS | Encounter Summary ---
Author Organization [employer] Address [address] [place] [address] [address] [place] [address] Care Team Providers Care Cottage Supervisor Name Role Phone Kristy Cain MD Primary Care Provider [phone] Reason for Referral * Imaging (STAT) - Pending Review Specialty Diagnoses / Procedures Referred By Contac t Referred To Contact Radiology Diagnoses Abdominal pain in female , unspecified gestational age Procedures US OB Transvaginal Agustina Squires MD [address] [place] [address] Phone: tel: fax: [address] Phone: tel: fax: Referral ID Status Reason Start Date Expiration Date V isits Requested Visits Authorized [id number] Pending Review 09/07/2024 09/07/2025 1 1 * Consultation (Routine) - Pending Review Specialty Diagnoses / Procedures Referred By Contac t Referred To Contact Obstetrics and Gynecology Diagnoses Abdominal pain in female , unspecified gestational age Agustina Squires MD [address] [place] [phone] Phone: tel: fax: Referral ID Status Reason Start Date Expiration Date Visits Requested Visits Authorized [id number] Pending Review Specialty Services Required 09/07/2024 09/07/2025 1 1 Reason for Visit * Reason Comments Abdominal Pain Encounter Details Date Type Department Care Team (Late st Contact Info) Description 09/07/2024 10:00 AM EDT [facility] [address] [address] , unspecified gestational age (Primary Dx); Abdominal pain in female Social History Tobacco Use Types Packs/Day Years Used Date Smoking Tobacco: Never Passive Smoke Exposure: Never Smokeless Tobacco: Never Alcohol Use Standard Drinks/Week Comments Never 0 (1 standard drink = 0.6 oz pur e alcohol) Housing Stability Answer Date Recorded What is your housing situation today? I have stellataz sheridan 10/28/[address] you [...] Description 09/21/2024 1:30 PM EDT Office Visit [facility] [address] [place] [address] [phone] Kristy Cain MD [address] [place], [place] [phone] 10/09/2024 11:00 AM EDT Procedure Visit [facility] [address] [place] [address] [phone] Kristy Cain MD [address] [place], [place] [phone] Scheduled Orders Name Type Priority Associated Diagnoses Orde r Schedule US OB Transvaginal Imaging STAT Abdominal pain in female , unspecified gestational age Expected: 09/07/2024, Expires: 09/07/2025 Scheduled Referrals Name Type Priority Associated Diagnoses Orde r Schedule Referral to Obstetrics / Gynecology Outpatient Referral Routine Abdominal pain in female , unspecified gestational age Expected: 09/07/2024 (Approximate), Expires: 09/07/2025 documented as of this encounter Procedures Procedure Name Priority Date/Time Associated Diagnosis Comments CHLAMYDIA/N. GONORRHOEAE RNA, TMA, UROGENITAL Routine 09/07/2024 11:25 AM EDT Abdominal pain in female HCG, TOTAL, QN Routine 09/07/2024 11:25 AM EDT , unspecified gestational age POCT URINALYSIS DIPSTICK Routine 09/07/2024 10:43 AM EDT Abdominal pain in female documented in this encounter Results * hCG, Total, Quantitative (09/07/2024 11:25 AM EDT) HCG Quantitative 1,077 mIU/mL [facility] Comment:Weeks post LMP Appro ximate hCG(Last Menstrual Period) Range (mIU/ml)3 - 4 weeks 9 - 1304 - 5 weeks 75 - 2,6005 - 6 weeks 850 - 20,8006 - 7 weeks 4000 - 100,2007 - 12 weeks 11,500 - 289,19828 - 16 weeks 18,300 - 137,60254 - 29 weeks (2nd trimester) 1,400 - 53,11186 - 41 weeks (3rd trimester) 940 - 60,000The Ramires B- hCG assay is used for the early detection ofpregnancy; it cannot be used to diagnose any conditionunrelated to . If a B-hCG level is not supportedby the clinical evidence, results should be confirmed by analternative method (qualitative urine hCG, for example). Blood Venous blood specimen / Unknown 09/07/2024 11:25 AM EDT 09/07/2024 1:03 PM EDT us Agsutina Squires MD LAB BLOOD ORDERABLES Final Re sult [facility] [address] [place] [phone] * Chlamydia/N. Gonorrhoeae RNA, TMA, Urogenitial (09/07/2024 11:25 AM EDT) Pathologist [facility] CT PCR NOT DETECTED Not Detect. [facility] Comment:A not detected test result does not exclude the possibilityof infection because test results can be affected byimproper specimen collection, concurrent antibiotic therapy,or the number of organisms in the specimen which may bebelow the sensitivity of the test. As with many diagnostictests, results from the Xpert CT/NG assay should beinterpreted in conjunction with other laboratory andclinical data available to the clinician.Xpert CT/NG performance has not been evaluated in patientsless than 14 years of age. The assay should not be used forthe evaluationof suspected sexual abuse or for other medico-legalindications. Additional testing is recommended in anycircumstance when false positive or false negative resultscould lead to adverse medical, social or psychologicalconsequences. NG PCR NOT DETECTED Not Detect. [facility] Comment:A not detected test result does not exclude the possibilityof infection because test results can be affected byimproper specimen collection, concurrent antibiotic therapy,or the number of organisms in the specimen which may bebelow the sensitivity of the test. As with many diagnostictests, results from the Xpert CT/NG assay should beinterpreted in conjunction with other laboratory andclinical data available to the clinician.Xpert CT/NG performance has not been evaluated in patientsless than 14 years of age. The assay should not be used forthe evaluationof suspected sexual abuse or for other medico-legalindications. Additional testing is recommended in anycircumstance when false positive or false negative resultscould lead to adverse medical, social or psychologicalconsequences. Swab (Vaginal Swab) 09/07/2024 11:25 AM EDT 09/07/2024 12:56 PM EDT Narrative [facility] - 09/07/2024 2:37 PM EDT Urine Agustina Squires MD LAB MICROBIOLOGY - GENERAL OR DERABLES Final Result [facility] [address] [place] [phone] * POCT urinalysis dipstick manually resulted (09/07/2024 [...] female documented in this encounter Care Teams Cottage Supervisor Relationship Specialty Start Date End Date Kristy Cain MD [address] [place] [address] PCP - General Family Medicine 12/25/19 documented as of this encounter
--- OUTSIDE RECORDS SUMMARY | 2024-09-07 15:03 | XMS_ITS | Clinical Summary ---
Author Organization [email or web address] Address [address] [place] [address] 7 [place] [address] Care Team Providers Care Ham Trimmer Name Role Phone Kristy Cain MD Primary Care Provider [phone] Allergies No known active allergies Medications acetaminophen [...] Description 09/07/2024 10:00 AM EDT Office Visit [facility] [address] [place] [address] , unspecified gestational age (Primary Dx); Abdominal pain in female 09/07/2024 Telephone [facility] [address] [place] [address] Kristy Cain MD Ultrasound 09/07/2024 Travel 06/30/2024 Telephone [facility] [address] [place] [address] Kristy Cain MD Appointment Request 06/30/2024 Telephone [facility] [address] [place] [address] Kristy Cain MD Nurse Triage from Last [...] Description 09/21/2024 1:30 PM EDT Office Visit [facility] [address] [place] [address] Kristy Cain MD [address] [place] [phone] 10/09/2024 11:00 AM EDT Procedure Visit [facility] [address] [place] [address] Kristy Cain MD [address] [place] [phone] Health Maintenance Due Date Last Done Comments Depression Screening 1998 HIV Screening 1998 Disability Screening 1998 Alcohol/Substance Use Screening 2010 Family Planning (PISQ) 2013 Hepatitis C Screening 2016 COVID-19 Vaccine ( - 2023- season) 2023 Influenza Vaccine (#1) 2023 , [...] Procedure Name Priority Date/Time Associated Diagnosis Comments HCG, TOTAL, QN Routine 09/07/2024 11:25 AM EDT , unspecified gestational age CHLAMYDIA/N. GONORRHOEAE RNA, TMA, UROGENITAL Routine 09/07/2024 11:25 AM EDT Abdominal pain in female POCT URINALYSIS DIPSTICK Routine 09/07/2024 10:43 AM EDT Abdominal pain in female PAP SMEAR Routine 01/15/2022 12:00 AM EDT from Last 3 Months or Most Recently Relevant to Health Maintenance Results * Chlamydia/N. Gonorrhoeae RNA, TMA, Urogenitial (09/07/2024 11:25 AM EDT) CT PCR NOT DETECTED Not Detect. [facility] Comment:A not detected test result does [...] psychologicalconsequences. NG PCR NOT DETECTED Not Detect. [facility] Comment:A not detected test result does [...] AM EDT 09/07/2024 12:56 PM EDT Narrative [facility] - 09/07/2024 2:37 PM EDT Urine Agustina Squires MD LAB MICROBIOLOGY - GENERAL OR DERABLES Final Result Performing Organization Address [facility] Co de Phone Number [facility] [address] [place] [phone] * hCG, Total, Quantitative (09/07/2024 11:25 AM EDT) HCG Quantitative 1,077 mIU/mL [facility] Comment:Weeks post LMP Appro ximate hCG(Last Menstrual Period) Range (mIU/ml)3 - 4 weeks 9 - 1304 - 5 weeks 75 - 2,6005 - 6 weeks 850 - 20,8006 - 7 weeks 4000 - 100,2007 - 12 weeks 11,500 - 289,72563 - 16 weeks 18,300 - 137,39508 - 29 weeks (2nd trimester) 1,400 - 53,61160 - 41 weeks (3rd trimester) 940 - [...] AM EDT 09/07/2024 1:03 PM EDT us Agustina Squires MD LAB BLOOD ORDERABLES Final Re sult Performing Organization Address [facility] Co de Phone Number [facility] [address] [place] [phone] * POCT urinalysis dipstick manually resulted [...] [place] Urine 09/07/2024 10:4 3 AM EDT us Agustina Squires MD POINT OF CARE TEST ENTER/EDIT ORDERABLES Final Result * Pap Smear (01/15/2022 12:00 AM EDT) Swab us Kristy Cain MD LAB CYTOLOGY ORDERABLES Final Result [facility] [address], [place] [address] from Last 3 Months or Most Recently Relevant to Health Maintenance Insurance [facility] C3 HSN PARTIAL Care Teams Ham Trimmer Relationship Specialty Start Date End Date Kristy Cain MD [address] [place] [phone] PCP - General Family Medicine 12/25/19
--- OUTSIDE RECORDS SUMMARY | 2024-09-07 15:03 | XMS_ITS | Encounter Summary ---
Author Organization [employer] Address [address] [place] [address] 7 [place] [address] Care Team Providers Care Sinker Winder Name Role Phone Kristy Cain MD Primary Care Provider [phone] Reason for Visit * Reason Onset Date Comments Ultrasound 09/07/2024 Encounter Details Date Type Department Care Team ([facility] st Contact Info) Description 09/07/2024 Telephone [facility] [address] [place], [place] [phone] Kristy Cain MD [address] [place], [place] [phone] Ultrasound Social History Tobacco Use Types Packs/Day Years [...] AM EDT documented as of this encounter Miscellaneous Notes * Telephone Encounter - Erinn Mitchell RN - 09/07/2024 1:45 PM EDT Pt has verified connect to [facility] [employer]. [place] [id number] Rosanna spoke to [facility]. Pt will keep 3:30 ultrasound appointment. * Telephone Encounter - Bernardino Templeton - 09/07/2024 12:07 PM EDT Tc from [facility] requesting correction of pelvis complete order stating it should be changed to OB first trimester. [facility] is also requesting pt's lab results and would need them tito because the pt is currently in office. Please contact [facility] at [phone]. documented in this encounter Plan of Treatment Upcoming Encounters Date Type Department Care Team (Late st Contact Info) Description 09/21/2024 1:30 PM EDT Office Visit [facility] [address] [place] [phone] Kristy Cain MD [address] [place] [phone] 10/09/2024 11:00 AM EDT Procedure Visit [facility] [address] [place] [address] Kristy Cain MD [address] [place] [address] documented as of this encounter Visit Diagnoses Not on filedocumented in this encounter Care Teams Sinker Winder Relationship Specialty Start Date End Date Kristy Cain MD [address] [place] [address] PCP - General Family Medicine 12/25/19 documented as of this encounter
== END 2024-09-07 15:02 | disposition home or self-care (01) ==
LOC: HO.US 15:01
PROVIDERS: Visit Provider Internal Medicine
DX: O28.3 Abnormal ultrasonic finding on antenatal screening of mother (principal); Z3A.01 Less than 8 weeks gestation of pregnancy; R10.9 Unspecified abdominal pain
CPT/HCPCS: 76801; 76817

== ENCOUNTER → 2024-09-07 15:04 | Outpatient (BNV) | payer OTHER, SELFPAY | PROVIDERS: Visit Provider Radiology Diagnostic Radiology | DX: O26.892 Other specified pregnancy related conditions, second trimester (principal); R10.9 Unspecified abdominal pain; Z3A.20 20 weeks gestation of pregnancy | CPT/HCPCS: 76801 ==

== ENCOUNTER 2024-09-21 14:10 | Outpatient (REF) | payer OTHER, SELFPAY ==
--- OUTSIDE RECORDS SUMMARY | 2024-09-21 15:24 | XMS_ITS | Encounter Summary ---
Author Organization [employer] Address [address] [place] [address] [address] [place] [address] Care Team Providers Care Title One Kindergarten Teacher Name Role Phone Kristy Cain MD Primary Care Provider [phone] Reason for Visit * Reason Onset Date Comments chart prep 09/18/2024 Encounter Details Date Type Department Care Team ([facility] st Contact Info) Description 09/18/2024 Telephone [facility] [address] [place], [place] [phone] Kristy Cain MD [address] [place] [address] chart prep Social History Tobacco Use Types Packs/Day Years [...] Access Q2 Not on file 12/23/2023 Comments Yes Sex and Gender Information Value Date Recorded Sex Assigned at Female 02/19/2022 10:27 AM EDT Legal Sex Female 10:27 AM EDT Gender Identity Female 02/19/2022 10:27 AM EDT Sexual Orientation Straight 02/19/2022 10 :27 AM EDT documented as of this encounter Miscellaneous Notes * Telephone Encounter - Jacqueline Anderson MA - 09/18/2024 9:51 AM EDT .Chart Prep Labs: done Images: done Referrals: not applicable Vaccines due: Covid and Flu Screenings: STI screening and LMP Overdue care gaps: SBIRT, PHQ-9, and Disability screen documented in this encounter Plan of Treatment Upcoming Encounters Date Type Department Care Team (Late st Contact Info) Description 10/09/2024 11:00 AM EDT Procedure Visit [facility] [address] [place] [address] Kristy Cain MD [address] [place] [address] documented as of this encounter Visit Diagnoses Not on filedocumented in this encounter Care Teams Title One Kindergarten Teacher Relationship Specialty Start Date End Date Kristy Cain MD [address] [place] [address] PCP - General Family Medicine 12/25/19 documented as of this encounter
[2024-09-21 16:05] LABS: MANUAL DIFF FLAG NO
[2024-09-21 16:16] LABS: Basophils Percent Auto 0.3 % (0-2); Eosinophils Percent Auto 0.4 % (0-4); Hematocrit 34.6 % (37.0-47.0); Hemoglobin 12.1 g/dl (12.0-16.0); Imm Gran Abs Auto 0.02 X10*3/uL (0.00-0.03); Imm Gran Pct Auto 0.3 % (0.0-0.4); Lymphocytes Absolute Auto 1.9 X10*3/uL (1.2-4.9); Lymphocytes Percent Auto 27.7 % (20-40); Mean Corpuscular Hemoglobin 31.7 pg (27.0-33.0); Mean Corpuscular Volume 90.6 fL (80.0-98.0); Mean Platelet Volume 9.9 fL (9.4-12.3); Monocytes Absolute Auto 0.6 X10*3/uL (0.1-1.2); Monocytes Percent Auto 8.4 % (2-11); Neutrophils Absolute Auto 4.3 x10*3/uL (2.0-8.3); Neutrophils Percent Auto 62.9 % (45-73); Platelet Count 179 X10*3/uL (160-400); Red Blood Count 3.82 X10*6/uL (4.20-5.50); Red Cell Distribution Width 13.4 % (11.0-16.0); White Blood Count 6.8 X10*3/uL (4.8-10.8)
[2024-09-21 17:00] LABS: HCG Quantitative 63 mIU/mL
== END 2024-09-21 14:11 | disposition home or self-care (01) ==
LOC: HO.HHCL 14:10
PROVIDERS: Visit Provider General Practice
DX: O00.90 Unspecified ectopic pregnancy without intrauterine pregnancy (principal)
CPT/HCPCS: 36415; 84702; 85025

== ENCOUNTER 2024-10-07 13:45 | Outpatient (REF) | payer OTHER, SELFPAY ==
[2024-10-07 16:45] LABS: HCG Quantitative 6 mIU/mL
== END 2024-10-07 13:46 | disposition home or self-care (01) ==
LOC: HO.HHCL 13:45
PROVIDERS: PCP General Practice; Visit Provider General Practice
DX: O00.90 Unspecified ectopic pregnancy without intrauterine pregnancy (principal)
CPT/HCPCS: 36415; 84702

== ENCOUNTER 2024-10-09 16:25 | Outpatient (REF) | payer OTHER, SELFPAY ==
[2024-10-09 17:42] LABS: Bacterial Vaginosis PCR POSITIVE (Negative); Candida Group PCR NOT DETECTED (Not Detect); Candida glab krusei PCR NOT DETECTED (Not Detect); Trichomonas vaginalis PCR NOT DETECTED (Not Detect)
[2024-10-09 19:35] LABS: CT PCR NOT DETECTED (Not Detect.); NG PCR NOT DETECTED (Not Detect.)
[2024-10-15 14:28] LABS: HPV Genotype 16 Negative (Negative); HPV Genotype 18 Negative (Negative); HPV High Risk Negative (Negative)
== END 2024-10-09 16:26 | disposition home or self-care (01) ==
LOC: HO.HHCLNP 16:25
PROVIDERS: Visit Provider General Practice
DX: Z12.4 Encounter for screening for malignant neoplasm of cervix (principal); Z11.51 Encounter for screening for human papillomavirus (HPV); Z11.3 Encounter for screening for infections with a predominantly sexual mode of transmission
CPT/HCPCS: 81515; 87491; 87591; 87626; 88175

== ENCOUNTER 2024-10-28 13:59 | Outpatient (REF) | payer OTHER, SELFPAY ==
--- NOTE | ~2024-10-28 | US_ITS ---
EXAMINATION: US PELVIS TRANSABDOMINAL AND TRANSVAGINAL HISTORY: followup after ectopic COMPARISON: Comparison is made with the prior examination dated 09/07/2024. TECHNIQUE: Transabdominal and endovaginal real-time 2D solis-scale ultrasound was performed. FINDINGS: Uterus: The uterus is normal in size, measuring 9.1 x 2.9 x 4.7 cm. Myometrium has a normal echotexture. No fibroids are identified. The previously seen anechoic structure in the left cornu is no longer identified. Endometrium: The endometrial stripe measures 3 mm in thickness. There is trace fluid in the endometrial canal. There are calcifications adjacent to the endometrium. There are nabothian cysts in the cervix. Right ovary: The right ovary measures 4.4 x 3.0 x 2.9 cm. The right ovary is normal in echotexture. Numerous follicles are seen in the peripheral aspect of the ovary. Left ovary: The left ovary measures 3.9 x 2.4 x 3.2 cm. The left ovary demonstrates normal echotexture. Numerous follicles are seen in the peripheral aspect of the ovary. Pelvic fluid: none. US/US pelvic and transvaginal IMPRESSION: 1. Trace fluid in the endometrial canal. The previously seen anechoic structure in the left cornu is no longer identified. 2. Enlarged ovaries demonstrating multiple peripheral follicles suggestive of polycystic ovarian syndrome. Clinical correlation is recommended. Electronically signed by: Nicolas Mallory MD 10/28/2024 03:14 PM EDT
--- OUTSIDE RECORDS SUMMARY | 2024-10-28 14:43 | XMS_ITS | Clinical Summary ---
Author Organization [employer] Address [address] [place] [address] 7 [place] [address] Care Team Providers Care Fruit Preserver Name Role Phone Kristy Cain MD Primary Care Provider [phone] Allergies No known active allergies Medications Vit-Fe Fumarate-FA ( Vitamins) 28-0.8 MG tabletIndications :Ectopic , unspecified location, unspecified whether intrauterine present Take 1 tablet by mouth in the morning. 30 tablet 12 5 Active metroNIDAZOLE (Flagyl) 500 MG tablet Take 1 tablet (500 mg) by mouth 2 times daily for 7 days. 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 Assessment & Plan (11/29/2022 4:55 PM EDT): Exposure to marijuana flower at work seems to trigger this - has not improved with Damaris or Cetirizine - will trail Loratadine and Benadryl - consider other lines of work as occupational exposure is the main trigger of her allergies Resolved Problems Problem Noted Date Diagnosed Date Resolved Date Strep pharyngitis 02/13/2024 10/21/2024 Assessment & Plan (02/13/2024 11:15 AM EDT): -rapid strep positive -amoxicillin 500mg bid for 10 days -ibuprofen for fever -droplet precautions discussed -supportive care discussed -ER precautions given Encounters Date Type Department Care Team Description 10/15/2024 Results Follow-Up [address] [address] Kristy Cain MD HPV DNA, Low/High Risk, Pap Smear 10/11/2024 Results Follow-Up [address] [address] Kristy Cain MD Chlamydia/N. Gonorrhoeae RNA, TMA, Urogenitial, Bacterial Vaginosis Panel 10/09/2024 11:00 AM EDT Procedure Visit [address] [address] Kristy Cain MD Screening for cervical cancer (Primary Dx) 10/09/2024 Orders Only [address] [address] Kristy Cain MD 10/09/[address] [address] Kristy Cain MD Letter for School/Work 10/09/2024 Travel 10/07/[address] [address] Kristy Cain MD CHART PREP 09/22/[address] [address] Kristy Cain MD Results 09/21/2024 1:30 PM EDT Office Visit [address] [address] Kristy Cain MD Ectopic , unspecified location, unspecified whether intrauterine present (Primary Dx); Dietary counseling; Exercise counseling; , unspecified gestational age 0609/21/2024 Travel 09/18/2024 Results Follow-Up [facility] [address] [place], [place] [phone] Agustina Squires MD Chlamydia/N. Gonorrhoeae RNA, TMA, Urogenitial, POCT urinalysis dipstick manually resulted, hCG, Total, Quantitative 09/18/[address] [address] Kristy Cain MD chart prep 09/09/2024 Patient Outreach [address] [place] [address] Kristy Cain MD Pre-visit Planning ((SDOH screening negative tobacco screening positive)) 09/08/2024 Telephone [facility] [address] [place] [phone] Agustina Squires MD 09/07/2024 10:00 AM EDT Office Visit [facility] [address] [place] [phone] Agustina Squires MD , unspecified gestational age (Primary Dx); Abdominal pain in female; Other ectopic , unspecified whether intrauterine present 09/07/2024 Telephone [facility] [address] [place] [phone] Kristan Marroquin RN U/S Results reported to MD's 09/07/2024 Telephone [facility] [address] [place] [phone] Kristy Cain MD Ultrasound 09/07/2024 Travel from Last 3 Months Immunizations Immunization Administration [...] drink = 0.6 oz pur e alcohol) Depression Answer Date Recorded Patient Health Questionnaire-9 Score 3 09/21/2024 Patient Health Questionnaire-9 Score 3 09/21/2024 Last PHQ-9: Questionnaire Data Not on file 0 09/21/2024 Housing Stability Answer Date Recorded What is your housing situation today? I have stella sheridan 10/28/[address] you li ve. Do you have problems with any of the following? None of the above 10/28/2023 Food Insecurity Answer Date Recorded Within the past 12 months, y ou worried that your food would run out before you got money to buy more: Sometimes True 2024 Within the past 12 months,th e food you bought just didn't last and you didn't have enough money to get more: Never True 09/21/2024 Transportation Answer Date Recorded In the past 12 months, has l ack of transportation kept you from medical appts, meetings, work or from getting things needed for daily living? No 10/28/2023 Utilities Answer Date Recorded In the past 12 months, has t he electric, gas, oil or water company threatened to shut off services in your home? No 10/28/2023 Depression Answer Date Recorded Patient Health Questionnaire-2 Score 1 09/21/2024 Internet Access Answer Date Recorded Internet Access Q1 Yes 12/23/2023 Internet Access Q2 Not on file 12/23/2023 Comments No Intention Date Recorded Wants to become (finding) 10/09 Sex and Gender Information Value Date Recorded Sex Assigned at Female 02/19/2022 10:27 AM EDT Legal Sex Female 10:27 AM EDT Gender Identity Female 02/19/2022 10:27 AM EDT Sexual Orientation Straight 02/19/2022 10 :27 AM EDT Last Filed Vital Signs Vital Sign Reading Time Taken Comments Blood Pressure 98/79 10/09/2024 11:32 AM EDT Pulse 62 10/09/2024 11:32 AM EDT Temperature 37.4 C (99.4 F) 10/09/2024 11:32 AM EDT Respiratory Rate 14 10/09/2024 11:32 AM EDT Oxygen Saturation 98% 10/09/2024 11:32 AM EDT Inhaled Oxygen Concentration - - Weight 62 kg (136 lb 9.6 oz) 10/09/2024 11:32 AM EDT Height 154.9 cm (5' 1 ) 10/09/2024 11:32 AM EDT Body Mass Index 25.81 10/09/2024 11:32 AM EDT Plan of Treatment Health Maintenance Due Date Last Done Comments HIV Screening 2000 Hepatitis C Screening 2016 COVID-19 Vaccine ( season) 2023 Influenza Vaccine (#1) 2024 , 04/17/2018, 01/16/2017 Depression Screening 09/21/2025 09/21/2024, 09/22/19 Disability Screening 09/21/2025 09/21/2024 SDOH Screening 09/21/2025 09/21/2024 Alcohol/Substance Use Screening 10/09/2025 10/09/2024 Tobacco Screening 10/09/2025 10/09/2024 Family Planning (PISQ) 10/21/2025 10/21/2024 Pap Smear 10/10/2027 10/09/2024, 12/22, 01/15/2022, Additional history exists DTaP/Tdap/Td Vaccines (7 - Td or Tdap) [...] Years) and At-Risk Patients (6 to 49) Years Aged Out No longer eligible based on patient's age to complete this topic RSV under 20 months Aged Out No longe r eligible based on patient's age to complete this topic Rotavirus Vaccines Aged Out No longer eligible based on patient's age to complete this topic Procedures Procedure Name Priority Date/Time Associated Diagnosis Comments PAP SMEAR Routine 10/09/2024 11:19 AM EDT HPV DNA, LOW/HIGH RISK Routine 10/09/2024 11:19 AM EDT BACTERIAL VAGINOSIS PANEL Routine 10/09/2024 11:19 AM EDT Screening for cervical cancer CHLAMYDIA/N. GONORRHOEAE RNA, TMA, UROGENITAL Routine 10/09/2024 11:19 AM EDT Screening for cervical cancer HCG, TOTAL, QN Routine 10/07/2024 1:56 PM EDT Ectopic , unspecified location, unspecified whether intrauterine present HCG, TOTAL, QN Routine 09/21/2024 2:11 PM EDT Ectopic , unspecified location, unspecified whether intrauterine present CBC WITH AUTO DIFFERENTIAL Routine 09/21/2024 2:11 PM EDT Ectopic , unspecified location, unspecified whether intrauterine present US OB PELVIS TRANSVAGINAL STAT 09/07/2024 3:14 PM EDT HCG, TOTAL, QN Routine 09/07/2024 11:25 AM EDT , unspecified gestational age CHLAMYDIA/N. GONORRHOEAE RNA, TMA, UROGENITAL Routine 09/07/2024 11:25 AM EDT Abdominal pain in female POCT URINALYSIS DIPSTICK Routine 09/07/2024 10:43 AM EDT Abdominal pain in female from Last 3 Months Results * (ABNORMAL) Bacterial Vaginosis Panel (10/09/2024 11:19 AM EDT) TRICHOMONAS VAGINALIS DETECTION BY PCR NOT DETECTED Not Detect [facility] BACTERIAL VAGINOSIS DETECTION BY PCR POSITIVE(A) Negative [facility] Comment:The BV organism targ ets of the Xpert Xpress MVP test can becommensal in women; Xpert Xpress MVP positive results forbacterial vaginosis should be considered in conjunction withother clinical and patient information to determine thedisease status. Organisms that are not detected by the XpertXpress MVP test have also been reported to be associatedwith BV and aerobic vaginitis.The Xpert Xpress MVP test performance has not been evaluatedin patients under the age of 14. HEATHER GROUP DETECTION BY PCR NOT DETECTED Not Detect [facility] Heather glab krusei PCR NOT DETECTED Not Detect [facility] Swab Vaginal structure / Unknown 10/09/2024 11:19 AM EDT 10/09/2024 4:27 PM EDT us Kristy Cain MD LAB MICROBIOLOGY - GENERAL ORD ERABLES Final Result [facility] [address] [place] [phone] * HPV DNA, Low/High Risk (10/09/2024 11:19 AM EDT) HPV High Risk Negative Negative [facility] HPV Genotype 16 Negative Negative [facility] HPV Genotype 18 Negative Negative [facility] Comment:HPV testing performe d at [facility] (CLIA#[id number]), [address] [place] [address].Testing for HPV was performed using the [employer] Global0system. The presence of HPV in the female genital tract isassociated with a number of diseases, including cervicalcarcinoma. The HPV DNA high risk pool tests for HPV 31, 33,35, 39, 45, 51, 52, 56, 58, 59, 66 and 68. The testing forHPV 16 and 18 genotypes has also been performed. A positiveresult indicates detection of nucleic acid sequences fromone or more subtypes, whereas a negative result indicatessuch sequences were not detected. 10/09/2024 11:1 9 AM EDT 10/12/2024 8:15 AM EDT us Kristy Cain MD LAB BLOOD ORDERABLES Final Res ult [facility] [address] [place] [phone] * Chlamydia/N. Gonorrhoeae RNA, TMA, Urogenitial (10/09/2024 11:19 AM EDT) Only the most recent of2 resultswithin the time period is included. CT PCR NOT DETECTED Not Detect. [facility] Comment:A not detected test result does [...] psychologicalconsequences. NG PCR NOT DETECTED Not Detect. [facility] Comment:A not detected test result does [...] to adverse medical, social or psychologicalconsequences. Swab Cervical swab / Unknown 10/09/2024 11:19 AM EDT 10/09/2024 4:27 PM EDT [facility] - 10/09/2024 7:35 PM EDT Vaginal Kristy Cain MD LAB MICROBIOLOGY - GENERAL ORD ERABLES Final Result [facility] [address] [place] [phone] * Pap Smear (10/09/2024 11:19 AM EDT) 10/09/2024 11:1 9 AM EDT 10/12/2024 8:15 AM EDT [facility] - 10/15/2024 3:29 PM EDT ----- ------- Name: Elvie Mills Age/Sex: 24/F : 2000 Unit#: [id number] Attend Dr: Kristy Cain Re10/09/24 Status: DEP REF Location: .HHCLNP Disch: ----- ------- SPEC : [id number] RECD: 10/12/24 STATUS: NIRALI CHILD NUM: [id number] BRENDA: 10/09/24-1119 [facility] DR: Kristy Cain ENTERED: 10/12/24 SP TYPE: Pap Smr [facility] DR: ORDERED: Pap Smear Interpretation Satisfactory for evaluation. Negative for intraepithelial lesion or malignancy. Coccobacilli consistent with shift in vaginal amaury. Moderate inflammation. HPV High Risk: Negative HPV Genotyping 16: Negative HPV Genotyping 18: Negative Clinical Information LMP: 09/18/2024 Previous PAP test: Unknown date, NILM Other history: Recent ectopic Material Received ThinPrep-Cervical PAP Disclaimer As of February 12, 2024, the technical services to include automated prescreening performed by the ThinPrep Imaging System, PAP screening and HPV testing will be performed at [facility] (CLIA #[id number]), [address] [place] [address]. Testing for HPV was performed using the [employer] 6800 system. The presence of HPV in the female genital tract is associated with a number of diseases, including cervical carcinoma. The HPV DNA high risk pool tests for HPV 31, 33, 35, 39, 45, 51, 52, 56, 58, 59, 66 and 68. The testing for HPV 16 and 18 genotypes has also been performed. A positive result indicates detection of nucleic acid sequences from one or more subtypes, whereas a negative result indicates such sequences were not detected. All professional services are performed by [facility] ([address] [place] [address], [place] [address]; ; CLIA #[id number]). The PAP Test is a screening procedure with the inherent possibility of both false negative and false positive results. Results should be interpreted in the context of historic and current clinical findings. Reliability of the PAP Test is enhanced by performing the test on a regular repetitive basis. CONTINUED ON NEXT PAGE ----- ------- Name: Semaj Elvie Coronel Age/Sex: : 2000 Unit#: [id number] Attend Dr: Kristy Cain Re10/09/24 Status: DEP REF Location: HO.HHCLNP Disch: ----- ------- SPEC : [id number] RECD: 10/12/24 STATUS: NIRALI CHILD NUM: [id number] BRENDA: 10/09/24-1118 [facility] DR: Kristy Cain ENTERED: 10/12/24 SP TYPE: Pap Jose CLIFFORD DR: ORDERED: Pap Smear ----- ------- Signed (signature on file) TERESITA Nix ([facility]) 10/15/24 1529 ----- ------- END OF REPORT Kristy Cain MD LAB CYTOLOGY ORDERABLES Final Result Performing Organization Address [facility] Co de Phone Number [facility] [address] [place] [address] [phone] * hCG, Total, Quantitative (10/07/2024 1:56 PM EDT) Only the most recent of3 resultswithin the time period is included. HCG Quantitative 6 mIU/mL [facility] Comment:Weeks post LMP Appro ximate hCG(Last Menstrual Period) Range (mIU/ml)3 - 4 weeks 9 - 1304 - 5 weeks 75 - 2,6005 - 6 weeks 850 - 20,8006 - 7 weeks 4000 - 100,2007 - 12 weeks 11,500 - 289,88357 - 16 weeks 18,300 - 137,82245 - 29 weeks (2nd trimester) 1,400 - 53,90505 - 41 weeks (3rd trimester) 940 - 60,000The Ramires B- hCG assay is used for the early detection ofpregnancy; it cannot be used to diagnose any conditionunrelated to . If a B-hCG level is not supportedby the clinical evidence, results should be confirmed by analternative method (qualitative urine hCG, for example). Blood Venous blood specimen / Unknown 10/07/2024 1:56 PM EDT 10/07/2024 4:14 PM EDT Kristy Cain MD LAB BLOOD ORDERABLES Final Res ult Performing Organization Address [facility]/ZIP Co de Phone Number [facility] [address] [place], [place] [phone] * (ABNORMAL) CBC auto differential (09/21/2024 2:11 PM EDT) White Blood Count 6.8 4.8 - 10.8 X10*3/uL [facility] Red Blood Count 3.82(L) 4.20 - 5.50 X10*6/uL [facility] Hemoglobin 12.1 12.0 - 16.0 g/dl [facility] Hematocrit 34.6(L) 37.0 - 47.0 % [facility] Mean Corpuscular Volume 90.6 80.0 - 98.0 fL [facility] Mean Corpuscular Hemoglobin 31.7 27.0 - 33.0 pg [facility] Mean Corpuscular HGB Conc 35.0 31.0 - 35.0 g/dl [facility] Red Cell Distribution Width 13.4 11.0 - 16.0 % [facility] Platelet Count 179 160 - 400 X10*3/uL [facility] Mean Platelet Volume 9.9 9.4 - 12.3 fL [facility] Neutrophils Percent Auto 62.9 45 - 73 % [facility] Imm Gran Pct Auto 0.3 0.0 - 0.4 % [facility] Lymphocytes Percent Auto 27.7 20 - 40 % [facility] Monocytes Percent Auto 8.4 2 - 11 % [facility] Eosinophils Percent Auto 0.4 0 - 4 % [facility] Basophils Percent Auto 0.3 0 - 2 % [facility] NRBC Pct Auto 0.0 0.0 - 0.2 /100WBC [facility] Neutrophils Absolute Auto 4.3 2.0 - 8.3 x10*3/uL [facility] Imm Gran Abs Auto 0.02 0.00 - 0.03 X10*3/uL [facility] Lymphocytes Absolute Auto 1.9 1.2 - 4.9 X10*3/uL [facility] Monocytes Absolute Auto 0.6 0.1 - 1.2 X10*3/uL [facility] Eosinophils Absolute Auto 0.0 0.0 - 0.4 X10*3/uL [facility] Basophils Absolute Auto 0.0 0.0 - 0.2 X10*3/uL [facility] NRBC Abs Auto 0.000 0.0 - 0.012 X10*3/uL [facility] Blood Venous blood specimen / Unknown 09/21/2024 2:11 PM EDT 09/21/2024 4:00 PM EDT us Kristy Cain MD LAB BLOOD ORDERABLES Final Res ult [facility] [address] [place] [phone] * US OB Pelvis with Transvaginal (09/07/2024 3:14 PM EDT) Anatomical Region Laterality Modality Pelvis Ultrasound 09/07/2024 3:14 PM EDT Narrative 09/07/2024 4:01 PM EDT [address] [address] Ultrasound Report Signed Patient: Elvie Mills MR# : [id number] : 2000 Acct:[id number] Age/Sex: 24 / F ADM Date: 09/07/24 Loc: HO.US Attending Dr: Agustina Squires MD Ordering Physician: Agustina Squires MD Date of Service: 09/07/24 Procedure(s): US OB pelvic and transvaginal Accession Number(s): [id number] cc: Agustina Squires MD EXAMINATION: US OBSTETRICAL ULTRASOUND CLINICAL INFORMATION: Abnormal pain. test with bilateral lower quadrant pain. Concerning to ectopic/tubal COMPARISON: None available. LMP: 04/19/2024.. Gestational age by maternal dates is 20 weeks and 1 day. Estimated date of delivery by maternal dates is 01/24/2025. TECHNIQUE: Transabdominal and transvaginal obstetrical pelvic ultrasound performed using grayscale and color Doppler technique. FINDINGS: Uterus measures 12 x 3 x 5 cm. Endometrial stripe measures 1.2 cm. There is a 0.5 cm well-defined thin wall anechoic structure in the fundus of the uterine cavity to the left cornual. No yolk sac or pole. FRED (estimated date of delivery): 05/09/2025 +/- 4 days. MATERNAL ADNEXA: The right maternal ovary measures 5 x 3 x 3 cm. Volume: 13 cc. The left maternal ovary measures 5 x 3 x 3 cm. Volume: 22 cc. There is no significant maternal adnexal mass. No maternal pelvic ascites. US/US OB pelvic and transvaginal IMPRESSION: 0.5 cm anechoic structure without pole or yolk sac sac, possibly empty gestational sac corresponding to 5 weeks and 1 day in the superior uterine fundus/left cornual. Concerning for cornual ectopic A message to the requesting physician using alike recommended at 3:57 PM on September 07, 2024. Electronically signed by: Kenneth Diamond MD 09/07/2024 03:58 PM EDT RP Dictated By: Kenneth Love MD Signed By: <Electronically signed by Kenneth Daomn MD in OV> 09/07/24 1558 DD/ 1514 TD/TT: 09/07/24 1530 Heat Treat Supervisor: Procedure Note Donotuseinterpreter, Image - 09/07/2024 [place] [address] Ultrasound Report Signed Patient: Elvie Mills# : [id number] : 2000Acct:[id number] Age/Sex: 24 FADM Date: 09/07/24 Loc: HO.US Attending Dr: Agustina Squires MD Ordering Physician: Agustina Squires MD Date of Service: 09/07/24 Procedure(s): US OB pelvic and transvaginal Accession Number(s): [id number] cc: Agustina Squires MD EXAMINATION: US OBSTETRICAL ULTRASOUND CLINICAL INFORMATION: Abnormal pain. test with bilateral lower quadrant pain. Concerning to ectopic/tubal COMPARISON: None available. LMP: 04/19/2024.. Gestational age by maternal dates is 20 weeks and 1 day. Estimated date of delivery by maternal dates is 01/24/2025. TECHNIQUE: Transabdominal and transvaginal obstetrical pelvic ultrasound performed using grayscale and color Doppler technique. FINDINGS: Uterus measures 12 x 3 x 5 cm. Endometrial stripe measures 1.2 cm. There is a 0.5 cm well-defined thin wall anechoic structure in the fundus of the uterine cavity to the left cornual. No yolk sac or pole. FRED (estimated date of delivery): 05/09/2025 +/- 4 days. MATERNAL ADNEXA: The right maternal ovary measures 5 x 3 x 3 cm. Volume: 13 cc. The left maternal ovary measures 5 x 3 x 3 cm. Volume: 22 cc. There is no significant maternal adnexal mass. No maternal pelvic ascites. US/US OB pelvic and transvaginal IMPRESSION: 0.5 cm anechoic structure without pole or yolk sac sac, possibly empty gestational sac corresponding to 5 weeks and 1 day in the superior uterine fundus/left cornual. Concerning for cornual ectopic A message to the requesting physician using alike recommended at 3:57 PM on September 07, 2024. Electronically signed by: Kenneth Diamond MD 09/07/2024 03:58 PM EDT Dictated By: Kenneth Love MD Signed By: <Electronically signed by Kenneth Damon MDin OV> 09/07/24 1558 DD/ 1514 TD/TT: 09/07/24 1530 Heat Treat Supervisor: Result [facility] Agustina Squires MD IMG US PROCEDURES Final Resul t * POCT urinalysis dipstick manually resulted (09/07/2024 [...] OF CARE TEST ENTER/EDIT ORDERABLES Final Result from Last 3 Months Insurance [facility] Care Teams Fruit Preserver Relationship Specialty Start Date End Date Kristy Cain MD [address] [place] [phone] PCP - General Family Medicine 12/25/19
== END 2024-10-28 14:00 | disposition home or self-care (01) ==
LOC: HO.US 13:59
PROVIDERS: Visit Provider General Practice
DX: O00.90 Unspecified ectopic pregnancy without intrauterine pregnancy (principal)
CPT/HCPCS: 76830; 76856

== ENCOUNTER → 2024-10-28 14:02 | Outpatient (BNV) | payer OTHER, SELFPAY | PROVIDERS: Visit Provider Radiology Diagnostic Radiology | DX: E28.2 Polycystic ovarian syndrome (principal) | CPT/HCPCS: 76830; 76856 ==

== ENCOUNTER 2024-12-29 08:39 | Emergency (ER) | payer OTHER, SELFPAY ==
--- OUTSIDE RECORDS SUMMARY | 2024-12-28 14:20 | XMS_ITS | Encounter Summary ---
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 Name Role Phone Kristy Cain MD Primary Care Provider Reason for Referral * Consultation (Routine) - Pending Review Specialty Diagnoses / Procedures Referred By Funmi acosta Referred To Contact Allergy Diagnoses Environmental and seasonal allergies Amina Rothman FNP [address] [place] [address] Phone: tel: fax: Referral ID Status Reason Start Date Expiration Date Visits Requested Visits Authorized [id number] Pending Review Specialty Services Required 12/28/2024 12/28/2025 1 1 Reason for Visit * Reason Comments Allergies Encounter Details Date Type Department Care Team (Latest Contact Info) Description 12/28/2024 2:20 PM EDT Office Visit [facility] [address] [place] [address] Amina Rothman FNP [address] [place] [address] Environmental and seasonal allergies (Primary Dx) Social History Tobacco Use Types Packs/Day Years [...] Sign Reading Time Taken Comments Blood Pressure 119/70 12/28/2024 2:35 PM EDT Pulse 76 12/28/2024 2:35 PM EDT Temperature 36.7 C (98 F) 12/28/2024 2:35 PM EDT Respiratory Rate 16 12/28/2024 2:35 PM EDT Oxygen Saturation 99% 12/28/2024 2:35 PM EDT Inhaled Oxygen Concentration - - Weight 64.9 kg (143 lb) 12/28/2024 2:35 PM EDT Height - - Body Mass Index 27.02 10/09/2024 11:32 AM EDT documented in this encounter Progress Notes * Amina Botas, DRIVER'S EDUCATION INSTRUCTOR - 12/28/2024 2:20 PM EDT Subjective Patient ID: Elvie Coronel is a 24 y.o. female. 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 Reports she has seasonal allergies for many years and is taking her medications but nothing is working. She reports excessive sneezing and nasal congestion causing her lack of sleep. She is unsure of what she is allergic too, but does not think she has any new item exposures recently. Review of Systems Constitutional: Negative for appetite change, fatigue and fever. HENT: Positive for sneezing. Negative for ear pain, rhinorrhea and sore throat. Eyes: Negative for discharge. Respiratory: Negative for cough and shortness of breath. Cardiovascular: Negative for chest pain. Gastrointestinal: Negative for abdominal pain, constipation, diarrhea, nausea and vomiting. Genitourinary: Negative for difficulty urinating. Musculoskeletal: Negative for arthralgias and myalgias. Skin: Negative for rash and wound. Neurological: Negative for headaches. Hematological: Negative for adenopathy. Objective BP 119/70 (BP Location: Left arm, Patient Position: Sitting, BP Cuff Size: Adult) Pulse 76 Temp98 ??F (36.7 ??C) (Temporal) Resp 16 Wt 143 lb (64.9 kg) SpO2 99% BMI 27.02 kg/m?? Physical Exam Constitutional: Appearance: Normal appearance. HENT: Head: Normocephalic. Right Ear: External ear normal. Left Ear: External ear normal. Nose: Nose normal. No congestion or rhinorrhea. Mouth/Throat: Mouth: Mucous membranes are moist. Eyes: Conjunctiva/sclera: Conjunctivae normal. Cardiovascular: Rate and Rhythm: Normal rate and regular rhythm. Heart sounds: Normal heart sounds. Pulmonary: Effort: Pulmonary effort is normal. Breath sounds: Normal breath sounds. Musculoskeletal: General: Normal range of motion. Cervical back: Normal range of motion and neck supple. Skin: General: Skin is warm and dry. Capillary Refill: Capillary refill takes less than 2 seconds. Neurological: Mental Status: She is alert and oriented to person, place, and time. Psychiatric: Mood and Affect: Mood normal. Behavior: Behavior normal. Thought Content: Thought content normal. Judgment: Judgment normal. Assessment/Plan Diagnoses and all orders for this visit: Environmental and seasonal allergies Sx consistent with seasonal allergies Counseled hydration Consider allergy testing Continue H1 mily/IN steroid spray Trial peggy Recommended nasal saline, humidifier, steam as supportive measures. Reduce exposure to allergens / triggers when possible wash face and change clothes when coming in from outside Call/ RTC if fever, productive cough, SOB, severe VORA, or symptoms persist or worsen - Referral to Allergy; Future Other orders - fexofenadine (Peggy) 180 MG tablet; Take 1 tablet (180 mg) by mouth Once per day. documented in this encounter Plan of Treatment Scheduled Referrals Name Type Priority Associated Diagnoses Orde r Schedule Referral to Allergy Outpatient Referral Routine Environmental and seasonal allergies Expected: 12/28/2024 (Approximate), Expires: 12/28/2025 documented as of this encounter Visit Diagnoses Diagnosis Environmental and seasonal allergies- Primary documented in this encounter Additional Health Concerns Assessment Noted Time PHQ-9 Depression Total Score: 3 09/22/19 25 2:21 PM EDT documented as of this encounter Care Teams Aircraft Seat Upholsterer Relationship Specialty Start Date End Date Kristy Cain MD [address] [place] [id number] PCP - General Family Medicine 12/25/19 documented as of this encounter
--- NOTE | ~2024-12-29 | US_ITS ---
Examination: Ultrasound appendix INDICATION: Right lower quadrant pain. Prior: CT abdomen and pelvis from May 27, 2022 FINDINGS: Normal anatomic structures and a portion of a gestational sac within the uterus are identified in the right lower quadrant. However, the appendix is not identified. No free fluid is evident. Visualized portions of liver, gallbladder, and right kidney are unremarkable. US/US appendix IMPRESSION: Nonvisualized appendix Electronically signed by: Kevin Smith MD 12/29/2024 12:49 PM EDT
--- NOTE | ~2024-12-29 | MR_ITS ---
EXAMINATION: MR PELVIS WITHOUT IV CONTRAST, MR ABDOMEN WITHOUT IV CONTRAST HISTORY: RLQ pain r/o appendicitis. TECHNIQUE: Axial in and out of phase T1-weighted gradient echo, and fat suppressed T2, coronal T2 and fat-suppressed T2, and sagittal T2 and fat-suppressed T2 weighted MR images of the abdomen and pelvis were obtained. COMPARISON: Correlation is made with an ultrasound of the appendix performed earlier in the day and a CT of the abdomen and pelvis dated 05/27/2022. FINDINGS: The liver is normal in size. There is no loss of signal intensity on opposed phase imaging to suggest steatosis. The gallbladder, spleen, pancreas, adrenals, and kidneys are unremarkable. An intrauterine gestation is noted. The ovaries are normal in size. A normal appendix is visualized (series 3, images 18-21). There is no free fluid or lymphadenopathy. No right lower quadrant inflammatory process is identified. The visualized bones demonstrate normal marrow signal intensity. MR/MR abdomen wo con IMPRESSION: Intrauterine gestation. Otherwise unremarkable MRI of the abdomen and pelvis. A normal appendix is visualized. Electronically signed by: Nicolas Mallory MD 12/29/2024 03:29 PM EDT
--- NOTE | ~2024-12-29 | US_ITS ---
EXAMINATION: US OBSTETRICAL ULTRASOUND CLINICAL INFORMATION: Right lower quadrant pain, COMPARISON: None relevant LMP: 09/22/2024. Gestational age by maternal dates is 14 weeks 0 days. Estimated date of delivery by maternal dates is 06/29/2025. TECHNIQUE: Transabdominal transvaginal ultrasound with color Doppler and B-mode FINDINGS: There is a single intrauterine gestational sac with visible yolk sac, embryo/fetus, and cardiac activity. Trace perigestational sac crescents of fluid are present. The sac has a bilobed shape with incomplete versus hairline thin septation. Smaller lobulation off of the main gestational sac measures 2.0 x 1.2 cm and the larger portion of the sac containing fetus and yolk sac measures 2.1 x 3.2 cm.. HR: 174 beats per minute. CRL (crown rump length): 2.1 cm (8 weeks 6 days). FRED (estimated date of delivery): 08/04/2025 MATERNAL ADNEXA: The right maternal ovary measures 4.9 x 2.6 x 2.5 cm. There are numerous small peripheral follicles. The left maternal ovary measures 3.2 x 2.2 x 2.5 cm. There are numerous small peripheral follicles. There is no significant maternal adnexal mass. No maternal pelvic ascites. US/US OB pelvic and transvaginal IMPRESSION: Single living intrauterine gestation. Size and dates are not concordant. The size is smaller than suggested by dates. 2. Estimated gestational age by size is 8 weeks 6 days with estimated date of delivery 08/04/2025. Abnormal morphology of the gestational sac. It has a bilobed appearance with either an incomplete septation between the 2 lobulations or hairline thin septation. This could be related to an amniotic band, uterine synechia, or could indicate a failed monochorionic twin gestation. Recommend short interval follow-up. Small volume perigestational sac subchorionic fluid/hemorrhage could relate to sac implantation. Ovarian morphology with numerous peripheral follicles raises question of underlying polycystic ovarian syndrome. Electronically signed by: Kevin Smith MD 12/29/2024 12:08 PM EDT
--- NOTE | ~2024-12-29 | MR_ITS ---
EXAMINATION: MR PELVIS WITHOUT IV CONTRAST, MR ABDOMEN WITHOUT IV CONTRAST HISTORY: RLQ pain r/o appendicitis. TECHNIQUE: Axial in and out of phase T1-weighted gradient echo, and fat suppressed T2, coronal T2 and fat-suppressed T2, and sagittal T2 and fat-suppressed T2 weighted MR images of the abdomen and pelvis were obtained. COMPARISON: Correlation is made with an ultrasound of the appendix performed earlier in the day and a CT of the abdomen and pelvis dated 05/27/2022. FINDINGS: The liver is normal in size. There is no loss of signal intensity on opposed phase imaging to suggest steatosis. The gallbladder, spleen, pancreas, adrenals, and kidneys are unremarkable. An intrauterine gestation is noted. The ovaries are normal in size. A normal appendix is visualized (series 3, images 18-21). There is no free fluid or lymphadenopathy. No right lower quadrant inflammatory process is identified. The visualized bones demonstrate normal marrow signal intensity. MR/MR pelvis wo con IMPRESSION: Intrauterine gestation. Otherwise unremarkable MRI of the abdomen and pelvis. A normal appendix is visualized. Electronically signed by: Nicolas Mallory MD 12/29/2024 03:29 PM EDT
[2024-12-29 08:56] VITALS: BP 107/55; PULSE 72; RESP 16; TEMP 36.4; O2SAT 99; BMI 26.1
[2024-12-29 09:13] LABS: MANUAL DIFF FLAG NO
[2024-12-29 09:15] LABS: Appearance Urine Clear; Glucose Urine UA Negative (Negative); PH 6.5 (5.0-9.0); Specific Gravity - Urine 1.025 (1.005-1.025); UMIC TRIGGER UACC YES
[2024-12-29 09:16] LABS: UPreg QC Valid YES
[2024-12-29 09:25] LABS: Hematocrit 37.5 % (37.0-47.0); Hemoglobin 13.3 g/dl (12.0-16.0); Imm Gran Abs Auto 0.04 X10*3/uL (0.00-0.03); Imm Gran Pct Auto 0.3 % (0.0-0.4); Lymphocytes Absolute Auto 1.9 X10*3/uL (1.2-4.9); Mean Corpuscular HGB Conc 35.5 g/dl (31.0-35.0); Mean Corpuscular Hemoglobin 31.7 pg (27.0-33.0); Mean Corpuscular Volume 89.3 fL (80.0-98.0); NRBC Abs Auto 0.000 X10*3/uL (0.0-0.012); NRBC Pct Auto 0.0 /100WBC (0.0-0.2); Platelet Count 179 X10*3/uL (160-400); Red Blood Count 4.20 X10*6/uL (4.20-5.50); White Blood Count 13.2 X10*3/uL (4.8-10.8)
[2024-12-29 09:31] LABS: Alanine Aminotransferase 13 U/L (0-31); Albumin Level 4.7 g/dL (3.5-5.0); Alkaline Phosphatase 37 U/L (39-117); Anion Gap 13 (12-20); Aspartate Amino Transferase 18 U/L (5-31); Blood Urea Nitrogen 7 mg/dL (9-16); Calcium 9.4 mg/dL (8.4-10.2); Carbon Dioxide 25 mmol/L (22-29); Chloride 103 mmol/L (96-108); Creatinine Clr Calc Pharmacy 118.6; Estimated Glomerular Filt Rate > 60; Potassium 4.1 mmol/L (3.3-5.1); Sodium 137 mmol/L (135-145); Total Protein 7.8 g/dL (6.5-8.0)
--- NOTE | 2024-12-29 09:32 | ED_ITS ---
HPI - Abdominal Pain General Chief Complaint: Abdominal Pain Stated Complaint: Lower abd pain, vomiting Time Seen by Provider: 12/29/24 09:31 Source: patient Mode of arrival: ambulatory Limitations: no limitations History of Present Illness ED Provider: MALINI LEVY PA-C HPI narrative: 24 year old female presents to the ED today for evaluation of nausea, vomiting, and abdominal pain. She reports her abdominal pain is localized to her right lower abdomen and has been intermittent x3 days. Admits nausea and vomiting began last night, continuing into this morning prompting her to come to the ED. She is currently sexually active. She does not use BC or other forms of protection. Her LMP was 09/22/24 (approx 4 months ago). She reports her cycles are typically irregular. She reports history of ectopic in August of this year (5 months ago). She was evaluated at [facility] for this. Denies requiring surgical intervention. Denies fever, chills, diarrhea, urinary sx, flank pain, vaginal discharge/ bleeding. Denies any abdominal surgeries. Related Data Previous Rx's ?Medication ?Instructions ?Recorded ibuprofen 600 mg tablet 600 mg PO Q6H PRN pain #20 t abs 05/29/20 acetaminophen 500 mg tablet 1,000 mg (2 x 500 mg) PO Q ID PRN 05/27/22 (Tylenol Extra Strength) fever or pain #14 tabs amoxicillin 875 mg-potassium 1 tab PO BID 10 days #20 tabs 05/27/22 clavulanate 125 mg tablet docusate sodium 50 mg capsule 50 mg PO BID For constip ation #14 05/27/22 (Colace Clear) caps ibuprofen 800 mg tablet 800 mg PO Q8H PRN pain #14 t abs 05/27/22 ondansetron HCl 4 mg tablet 4 mg PO Q8H #14 tabs 05/27 polyethylene glycol 3350 17 17 g PO DAILY Constipation #119 05/27/22 gram/dose oral powder (Miralax) grams acetaminophen 500 mg tablet 1,000 mg (2 x 500 mg) PO Q ID PRN 12/29/24 (Tylenol Extra Strength) pain (scale score 1-3) #30 t abs doxylamine 10 mg-pyridoxine (vit 1 tab PO DAILY PRN na usea and 12/29/24 B6) 10 mg tablet,delayed release vomiting #30 tabs (Diclegis) vits 168-iron 27 mg-folic 1 cap PO DAILY #30 caps 12/29/24 acid 800 mcg-omega3 235 mg capsule (One-A-Day -1) Allergies Allergy/AdvReac Type Severity Reaction Status Date / Time No Known Allergies (No Known Allergy Verified 12/29/24 08:58 Allergies*) Review of Systems Review of Systems Yes all other systems are reviewed and are negative [facility] Past Medical History Attestation statement: The following information was validated with the patient. Source: old records reviewed and nursing notes reviewed Medical History Patient denies significant medical history Surgical History No significant past surgical history Physical Exam ED Vital Signs: Vital Signs - 24 hr 12/29/24 08:56 12/29/24 11:37 12/29/24 13:16 Temperature 97.5 F 97.4 F 98.4 F Pulse Rate 72 65 70 Respiratory Rate 16 18 18 Blood Pressure 107/55 L 95/54 L 103/49 L Pulse Oximetry 99 100 97 Oxygen Delivery Method Room Air Room Air Room Air 12/29/24 16:21 Temperature 98.0 F Pulse Rate 72 Respiratory Rate 18 Blood Pressure 111/52 L Pulse Oximetry 99 Oxygen Delivery Method Room Air BMI result Body Mass Index 26.1 Vital signs stable General: Well appearing, in no acute distress. Skin: Warm, dry, intact. No rashes or lesions. Head: Normocephalic, atraumatic. EENT: Hearing is intact b/l. Conjunctiva clear. Sclera is anicteric. PERRLA. EOM intact. Moist mucous membranes.? Cardiac: Chest wall symmetric. RRR Lungs: Normal respiratory effort without accessory muscle use. CTA bilaterally Abdomen: soft, TTP of RLQ w/ deep palpation, no rebound or guarding. negative rovsing sign. normoactive bs x4. pelvic exam deferred. Ext: Upper and lower extremities atraumatic, without tenderness, deformity, swelling or erythema Neuro: AOx3. Normal speech. Ambulating with steady gait. Course Course Course Narrative: 1006 -- CBC showing leukocytosis to 13.2 without left shift. No anemia. H&H stable. Chemistry without acute electrolyte abnormality requiring intervention. No ARNULFO. Total bilirubin mildly elevated to 1.2 of unknown significance. Liver function otherwise WNL. Urine with trace leukocyte esterase, 0-5 WBCs, negative nitrites, no urine bacteria. Her urine is positive. > serum beta hCG added. Will obtain pelvic ultrasound two-view location of . Discussed with patient who is agreeable. > IV fluids and antiemetic ordered > stable at this time. 1359 -- based on LMP, GA should measure 14 weeks. pelvic ultrasound shows single live IUP with dates not concordant w/ size. EGA by size measures 8 weeks and 6 days with FRED 08/04/24. Ultrasound also shows abnormal morphology of the gestational sac with a bilobed appearance with either an incomplete septation between the 2 lobulations or hairline thin septation. Possibly related to an amniotic band, uterine synechiae or could indicate a failed monochorionic twin gestation. There is small volume. Gestational sac subchorionic fluid/hemorrhage which could relate to sac implantation. Ovarian morphology with numerous peripheral follicles, possibly indicating underlying PCOS. Ultrasound RLQ was unable to visualize appendix. I discussed all work up results with patient. she reports great improvement in pain/ nausea after receiving IV tylenol, B6 and benadryl. Her exam shows mild ttp at [facility] point. I discussed case with my attending, Dr. Mcleod, who has evaluated patient at bedside. Given , RLQ pain, and elevated white count, we cannot completely r/o appendicitis. I have placed an order for MR abdomen for further evaluation. Patient is stable at this time. I also have concern that this may not be a viable , given the descrepancies between size and GA. Will reach out to OBGYN Dr. Hollingsworth. 1517 -- I discussed case with Dr. Hollingsworth - his recommendation is as follows: SAB warning to be given to patient, she is to come back to the emergency room in case of pelvic pain and or bleeding vitamin 1 tablet p.o. q.d. Close outpatient follow-up with repeat ultrasound on outpatient basis within few days Instructions to be given to patient to schedule an Outpatient follow up appointment with her OBGYN tito Regarding abdominal pain I would recommend to rule causes of abdominal pain including but not limited to appendicitis and general surgery consult 1530 -- MRI abdomen unremarkable - normal appendix with single IUP. Discussed SAB precautions with patient who verbalizes understanding. I have provided her with contact information to [facility] - advised to call them today for prompt follow up. If she is unable to see OBGYN in 2-3 days, instructed to return to the ED for repeat ultrasound. vitamins + antiemetic sent to pharmacy. Patient is anxious for discharge home. tolerating crackers and ginerale - symptoms much improved. Patient has remained stable throughout ED visit today. Discussed worrisome signs and symptoms and when to return to the ED. All questions answered at this time. Patient is agreeable with disposition and stable for discharge. Medical Decision Making Medical Decision Making [facility] Narrative: 24 year old female presents to the ED today for evaluation of nausea, vomiting, and abdominal pain. Vital signs stable, afebrile. She is well appearing and in NAD. Her abdomen is soft, TTP of RLQ w/ deep palpation, no rebound or guarding. negative rovsing sign. normoactive bs x4. pelvic exam deferred. Differential diagnoses: appendicitis, UTI, IUP, constipation, ectopic Abdominal exam without peritoneal signs. No evidence of acute abdomen at this time. Well appearing. Low suspicion for acute hepatobiliary disease (including acute cholecystitis), acute infectious processes (pneumonia, hepatitis, pyelonephritis, PID, TOA), vascular catastrophe, bowel obstruction or viscus perforation, ovarian cyst/ rupture/ torsion. Presentation not consistent with other acute, emergent causes of abdominal pain at this time. Plan: labs, UA, u preg, ultrasound, fluids, serial reassessment Differential Diagnosis Differential Diagnoses: The differential diagnosis associated with the presentation includes as above. Admission/Observation not indicated. Consult Healthcare Provider Management of the patient was discussed with: [employer] Machine Tender (OBGYN dr. hollingsworth) Lab Data [facility] Lab Attestation statement: I reviewed the patient's lab results. as above. 12/29/24 09:07 12/29/24 09:07 Labs: Lab Results 12/29/24 Range/Units 09:07 WBC 13.2 H (4.8-10.8) X10*3/uL RBC 4.20 (4.20-5.50) X10*6/uL Hgb 13.3 (12.0-16.0) g/dl Hct 37.5 (37.0-47.0) % MCV 89.3 (80.0-98.0) fL MCH 31.7 (27.0-33.0) pg MCHC 35.5 H (31.0-35.0) g/dl RDW 12.2 (11.0-16.0) % Plt Count 179 (160-400) X10*3/uL MPV 9.9 (9.4-12.3) fL Immature Gran % (Auto) 0.3 (0.0-0.4) % Neut % (Auto) 78.8 H (45-73) % Lymph % (Auto) 14.7 L (20-40) % [place] % (Auto) 5.4 (2-11) % Eos % (Auto) 0.6 (0-4) % Baso % (Auto) 0.2 (0-2) % Lymph # (Auto) 1.9 (1.2-4.9) X10*3/uL [place] # (Auto) 0.7 (0.1-1.2) X10*3/uL Eos # (Auto) 0.1 (0.0-0.4) X10*3/uL Baso # (Auto) 0.0 (0.0-0.2) X10*3/uL Abs Immat Gran (auto) 0.04 H (0.00-0.03) X10*3/uL Absolute Neuts (auto) 10.4 H (2.0-8.3) x10*3/uL Absolute Nucleated RBC 0.000 (0.0-0.012) X10*3/uL Nucleated RBC % (auto) 0.0 (0.0-0.2) /100WBC Sodium 137 (135-145) mmol/L Potassium 4.1 (3.3-5.1) mmol/L Chloride 103 (96-108) mmol/L Carbon Dioxide 25 (22-29) mmol/L Anion Gap 13 (12-20) BUN 7 L (9-16) mg/dL Creatinine 0.61 (0.5-1.4) mg/dL Estim Creat Clear Calc 118.6 Estimated GFR > 60 Random Glucose 87 (60-115) mg/dL Calcium 9.4 (8.4-10.2) mg/dL Total Bilirubin 1.2 H (0.0-1.0) mg/dL AST 18 (5-31) U/L ALT 13 (0-31) U/L Alkaline Phosphatase 37 L (39-117) U/L Total Protein 7.8 (6.5-8.0) g/dL Albumin 4.7 (3.5-5.0) g/dL Beta HCG, Quant 063677 mIU/mL Urine Color Yellow Urine Appearance Clear Urine pH 6.5 (5.0-9.0) Ur Specific [place] 1.025 (1.005-1.025) Urine Protein Trace (Neg-Trace) mg/dL Urine Glucose (UA) Negative (Negative) mg/dL Urine Ketones Trace (Negative) mg/dL Urine Blood Negative (Negative) Urine Nitrite Negative (Negative) Ur Leukocyte Esterase Trace H (Negative) Urine RBC 0-2 (0-2) /HPF Urine WBC 0-5 (0-5) /HPF Ur Squamous Epith Cells 0-2 (0-2) /HPF Urine Bacteria None Seen (None Seen) Hyaline Casts 3-5 (0-2) /LPF Urine Test POSITIVE H (NEGATIVE) Independent Interpretation I performed an independent interpretation of an: Ultrasound and MRI (abdomen/pelvis) Interpretation: Ultrasound right lower quadrant without visualization of appendix Pelvic ultrasound showing intrauterine MRI abdomen/pelvis without evidence of appendicitis Radiology Impression Discussion of test interpretation with radiology: I have reviewed the radiologist's reading. Radiologist Impression: Procedure(s): US appendix Accession Number(s): [id number] cc: Kristy Cain; Malini Levy~ Reason for Exam: RLQ pain Examination: Ultrasound appendix INDICATION: Right lower quadrant pain. Prior: CT abdomen and pelvis from May 27, 2022 FINDINGS: Normal anatomic structures and a portion of a gestational sac within the uterus are identified in the right lower quadrant. However, the appendix is not identified. No free fluid is evident. Visualized portions of liver, gallbladder, and right kidney are unremarkable. US/US appendix IMPRESSION: Nonvisualized appendix Electronically signed by: Kevin Smith MD 12/29/2024 12:49 PM EDT RP Procedure(s): US OB pelvic and transvaginal Accession Number(s): [id number] cc: Kristy Cain; Malini Levy~ Reason for Exam: +preg, RLQ pain EXAMINATION: US OBSTETRICAL ULTRASOUND CLINICAL INFORMATION: Right lower quadrant pain, COMPARISON: None relevant LMP: 09/22/2024. Gestational age by maternal dates is 14 weeks 0 days. Estimated date of delivery by maternal dates is 06/29/2025. TECHNIQUE: Transabdominal transvaginal ultrasound with color Doppler and B-mode FINDINGS: There is a single intrauterine gestational sac with visible yolk sac, embryo/fetus, and cardiac activity. Trace perigestational sac crescents of fluid are present. The sac has a bilobed shape with incomplete versus hairline thin septation. Smaller lobulation off of the main gestational sac measures 2.0 x 1.2 cm and the larger portion of the sac containing fetus and yolk sac measures 2.1 x 3.2 cm.. HR: 174 beats per minute. CRL (crown rump length): 2.1 cm (8 weeks 6 days). FRED (estimated date of delivery): 08/04/2025 MATERNAL ADNEXA: The right maternal ovary measures 4.9 x 2.6 x 2.5 cm. There are numerous small peripheral follicles. The left maternal ovary measures 3.2 x 2.2 x 2.5 cm. There are numerous small peripheral follicles. There is no significant maternal adnexal mass. No maternal pelvic ascites. US/US OB pelvic and transvaginal IMPRESSION: Single living intrauterine gestation. Size and dates are not concordant. The size is smaller than suggested by dates. 2. Estimated gestational age by size is 8 weeks 6 days with estimated date of delivery 08/04/2025. Abnormal morphology of the gestational sac. It has a bilobed appearance with either an incomplete septation between the 2 lobulations or hairline thin septation. This could be related to an amniotic band, uterine synechia, or could indicate a failed monochorionic twin gestation. Recommend short interval follow-up. Small volume perigestational sac subchorionic fluid/hemorrhage could relate to sac implantation. Ovarian morphology with numerous peripheral follicles raises question of underlying polycystic ovarian syndrome. Electronically signed by: Kevin Smith MD 12/29/2024 12:08 PM EDT Procedure(s): MR abdomen wo con Accession Number(s): [id number] cc: Kristy Cain; Malini Levy~ Reason for Exam: RLQ pain, , r/o appendicitis EXAMINATION: MR PELVIS WITHOUT IV CONTRAST, MR ABDOMEN WITHOUT IV CONTRAST HISTORY: RLQ pain r/o appendicitis. TECHNIQUE: Axial in and out of phase T1-weighted gradient echo, and fat suppressed T2, coronal T2 and fat-suppressed T2, and sagittal T2 and fat-suppressed T2 weighted MR images of the abdomen and pelvis were obtained. COMPARISON: Correlation is made with an ultrasound of the appendix performed earlier in the day and a CT of the abdomen and pelvis dated 05/27/2022. FINDINGS: The liver is normal in size. There is no loss of signal intensity on opposed phase imaging to suggest steatosis. The gallbladder, spleen, pancreas, adrenals, and kidneys are unremarkable. An intrauterine gestation is noted. The ovaries are normal in size. A normal appendix is visualized (series 3, images 18-21). There is no free fluid or lymphadenopathy. No right lower quadrant inflammatory process is identified. The visualized bones demonstrate normal marrow signal intensity. MR/MR abdomen wo con IMPRESSION: Intrauterine gestation. Otherwise unremarkable MRI of the abdomen and pelvis. A normal appendix is visualized. Electronically signed by: Nicolas Mallory MD 12/29/2024 03:29 PM EDT External Record Review External record reviewed: Inpatient record Prescription Management I considered prescription management with: Pain Medication (tylenol) and Other (diclegis, ) Social Determinants Patient?s care significantly limited by Social Determinants of Health including: Other Social Determinant of Health Medications Administered Discontinued Medications Generic Name Dose Route Start Last Admin Trade Name Freq PRN Reason Stop Dose Admin Acetaminophen 650 mg 12/29/24 11:22 12/29/24 11:29 Acetaminophen 325 Mg Tablet PO 12/29/24 11:23 650 mg ONCE ONE Administration Diphenhydramine HCl 25 mg 12/29/24 10:03 12/29/24 10:26 Diphenhydramine Hcl 25 Mg Capsule PO 12/29/24 10:04 25 mg ONCE ONE Administration Sodium Chloride 1,000 mls @ 999 mls/hr 12/29/24 10:00 12/29/24 11:54 Ns IV 12/29/24 11:00 Infused .Q1H1M HARVEY Infusion Sodium Chloride 1,000 mls @ 999 mls/hr 12/29/24 13:15 12/29/24 14:19 Ns IV 12/29/24 14:15 Infused .Q1H1M HAREVY Infusion Pyridoxine HCl 25 mg 12/29/24 10:03 12/29/24 10:26 Pyridoxine Hcl (Vitamin B6) 50 Mg Tablet PO 12/29/24 10:04 25 mg ONCE ONE Administration Critical Care Time Critical Care Time Critical Care Time: Yes Total Critical Care Time: 40 Attestation: Critical care time in the amount of 40 minutes has been provided to the patient in terms of direct patient care, frequent reevaluation, consultation with OBGYN, review and interpretation of medical data and results, and management of potentially life-threatening conditions. This is all outside of any medical procedures. Discharge Plan Discharge Clinical Impression: Qualifiers: Weeks of gestation: 8 weeks Qualified Code(s): Z3A.08 - 8 weeks gestation of Patient Disposition: Home, Self-Care Instructions: at 7 to 10 Weeks (ED) Additional Instructions: Your blood work today is reassuring. Your urine does not demonstrate infection. Your urine is is positive. You are . Your hormone measures 120,807 today. The ultrasound of your uterus shows a single intrauterine . The fetus is growing in the appropriate place. The MRI of your abdomen is normal. There are no signs of an infected appendix. As discussed, there is a discrepancy in the size and age of the . The fetus is measuring approximately 8 weeks however, given your last menstrual period, you should be around 14 weeks. Your estimated due date is 08/04/25. It is important that you watch out for signs of miscarriage, including increasing abdominal pain, vaginal bleeding, fever, etc. You need to establish care with an OBGYN doctor outpatient. I have provided you with referrals, call them to schedule an appointment. I recommend repeat ultrasound in 2-3 days. If you are unable to get an appointment with OBGYN in a few days, please return to the ED for this ultrasound. You may take Tylenol at home for pain/ discomfort. Avoid NSAIDS (motrin/ibuprofen/aleve) as these are harmful in . I have sent a vitamin to your pharmacy. Take this daily throughout your . I have also sent unisom to the pharmacy to help with your nausea/vomiting. [facility] [address] [facility] [phone] [facility] [place] [address] [phone] Prescriptions: New acetaminophen [Tylenol Extra Strength] 500 mg tablet 1,000 mg PO QID PRN (Reason: pain (scale score 1-3)) Qty: 30 0RF One-A-Day -1 27 mg iron- 800 mcg-235 mg capsule 1 cap PO DAILY Qty: 30 0RF doxylamine-pyridoxine (vit B6) [Diclegis] 10-10 mg tablet,delayed release (DR/EC) 1 tab PO DAILY PRN (Reason: nausea and vomiting) Qty: 30 0RF Rx Instructions: may increase to one tablet in the morning, one tablet in the afternoon, and two tablets at bed time as needed for nausea and vomiting. No Action ibuprofen 600 mg tablet 600 mg PO Q6H PRN (Reason: pain) Qty: 20 0RF amoxicillin-pot clavulanate 875-125 mg tablet 1 tab PO BID 10 Days Qty: 20 0RF acetaminophen [Tylenol Extra Strength] 500 mg tablet 1,000 mg PO QID PRN (Reason: fever or pain) Qty: 14 0RF ondansetron HCl 4 mg tablet 4 mg PO Q8H Qty: 14 0RF ibuprofen 800 mg tablet 800 mg PO Q8H PRN (Reason: pain) Qty: 14 0RF Colace Clear 50 mg capsule 50 mg PO BID Qty: 14 0RF polyethylene glycol 3350 [Miralax] 17 gram/dose powder 17 g PO DAILY Qty: 119 0RF Referrals: Kristy Cain MD [Primary Care Provider, Internal Medicine] Interventions: ED Discharge Assessment Last Done: 12/29/24 16:21 Discharge Date/Time: 12/29/24 16:36 Print Language: Welsh
--- OUTSIDE RECORDS SUMMARY | 2024-12-29 11:07 | XMS_ITS | Clinical Summary ---
Author Organization [employer] Address [address] [place] [address] 7 [place] [address] Care Team Providers Care Lavatory Attendant Name Role Phone Kristy Cain MD Primary Care Provider Allergies No known active allergies Medications Vit-Fe Fumarate-FA ( Vitamins) 28-0.8 MG tabletIndications :Ectopic , unspecified location, unspecified whether intrauterine present Take 1 tablet by mouth in the morning. 30 tablet 12 09/21/2024 Active fexofenadine (Damaris) 180 MG tablet Take 1 tablet (180 mg) by mouth Once per day. 30 tablet 11 12/28/2024 12/29/19 26 Active Active Problems Problem Noted Date Diagnosed Date [...] Encounters Date Type Department Care Team Description 12/28/2024 2:20 PM EDT Office Visit [facility] [address] [place] [phone] Amina Rothman FNP Environmental and seasonal allergies (Primary Dx) 12/28/2024 Travel 10/15/2024 Results Follow-Up [address] [address] Kristy Cain MD HPV DNA, Low/High Risk, Pap Smear 10/11/2024 Results Follow-Up [address] [address] Kristy Cain MD Chlamydia/N. Gonorrhoeae RNA, TMA, Urogenitial, Bacterial Vaginosis Panel 10/09/2024 11:00 AM EDT Procedure Visit [address] [address] Kristy Cain MD Screening for cervical cancer (Primary Dx) 10/09/2024 Orders Only [address] [address] Kristy Cain MD 10/09/[address] [address] Kristy Cain MD Letter for School/Work 10/09/2024 Travel 10/07/[address] [address] Kristy Cain MD CHART PREP from Last 3 Months Immunizations Immunization Administration [...] (143 lb) 12/28/2024 2:35 PM EDT Height 154.9 cm (5' 1 ) 10/09/2024 11:32 AM EDT Body Mass Index 27.02 10/09/2024 11:32 AM EDT Plan of Treatment Health Maintenance Due Date Last Done Comments HIV Screening 2000 Hepatitis C Screening 2016 COVID-19 Vaccine ( season) 2024 Influenza Vaccine (#1) 2024 , 04/17/2018, 01/16/2017 Depression Screening 09/21/2025 09/21/2024, 09/22/19 Disability Screening 09/21/2025 09/21/2024 SDOH Screening 09/21/2025 09/21/2024 Alcohol/Substance Use Screening 10/09/2025 10/09/2024 Family Planning (PISQ) 10/21/2025 10/21/2024 Tobacco Screening 12/28/2025 12/28/2024 Pap Smear 10/10/2027 10/09/2024, 12/22, 01/15/2022, Additional [...] Procedure Name Priority Date/Time Associated Diagnosis Comments COMPREHENSIVE METABOLIC PANEL Routine 12/29/2024 9:07 AM EDT CBC WITH AUTO DIFFERENTIAL Routine 12/29/2024 9:07 AM EDT HCG, QL, URINE Routine 12/29/2024 9:07 AM EDT URINALYSIS, COMPLETE, WITH REFLEX TO CULTURE Routine 12/29/2024 9:07 AM EDT US PELVIS TRANSVAGINAL Routine 10/28/2024 2:17 PM EDT PAP SMEAR Routine 10/09/2024 11:19 AM EDT HPV DNA, LOW/HIGH RISK Routine 10/09/2024 11:19 AM EDT BACTERIAL VAGINOSIS PANEL Routine 10/09/2024 11:19 AM EDT Screening for cervical cancer CHLAMYDIA/N. GONORRHOEAE RNA, TMA, UROGENITAL Routine 10/09/2024 11:19 AM EDT Screening for cervical cancer HCG, TOTAL, QN Routine 10/07/2024 1:56 PM EDT Ectopic , unspecified location, unspecified whether intrauterine present from Last 3 Months Results * (ABNORMAL) Urinalysis, Complete, with Reflex to Culture (12/29/2024 9:07 AM EDT) Color Urine Yellow [facility] Appearance Urine Clear [facility] PH 6.5 5.0 - 9.0 [facility] Glucose Urine UA Negative Negative mg/dL [facility] Urine Blood Negative Negative [facility] Specific [place] - Urine 1.025 1.005 - 1.025 [facility] Urine Protein Trace Neg-Trace mg/dL [facility] Urine Ketones Trace Negative mg/dL [facility] Nitrite Urine Negative Negative [facility] Leukocyte Esterase Urine Trace(A) Negative [facility] RBC Urine 0-2 0 - 2 /HPF [facility] Urine WBC 0-5 0 - 5 /HPF [facility] Urine Squamous Epithelial Cell 0-2 0 - 2 /HPF [facility] Urine Bacteria None Seen None Seen [facility] Hyaline Casts, Urine 3-5 0 - 2 /LPF [facility] 12/29/2024 9:07 AM EDT 12/29/2024 9:11 AM EDT Narrative [facility] - 12/29/2024 9:21 AM EDT [id number], Clean Catch us Generic External Data Provider LAB URINE ORDERAB LES Final Result [facility] [address] [place] [phone] * (ABNORMAL) CBC auto differential (12/29/2024 9:07 AM EDT) White Blood Count 13.2(H) 4.8 - 10.8 X10*3/uL [facility] Red Blood Count 4.20 4.20 - 5.50 X10*6/uL [facility] Hemoglobin 13.3 12.0 - 16.0 g/dl [facility] Hematocrit 37.5 37.0 - 47.0 % [facility] Mean Corpuscular Volume 89.3 80.0 - 98.0 fL [facility] Mean Corpuscular Hemoglobin 31.7 27.0 - 33.0 pg [facility] Mean Corpuscular HGB Conc 35.5(H) 31.0 - 35.0 g/dl [facility] Red Cell Distribution Width 12.2 11.0 - 16.0 % [facility] Platelet Count 179 160 - 400 X10*3/uL [facility] Mean Platelet Volume 9.9 9.4 - 12.3 fL [facility] Neutrophils Percent Auto 78.8(H) 45 - 73 % [facility] Imm Gran Pct Auto 0.3 0.0 - 0.4 % [facility] Lymphocytes Percent Auto 14.7(L) 20 - 40 % [facility] Monocytes Percent Auto 5.4 2 - 11 % [facility] Eosinophils Percent Auto 0.6 0 - 4 % [facility] Basophils Percent Auto 0.2 0 - 2 % [facility] NRBC Pct Auto 0.0 0.0 - 0.2 /100WBC [facility] Neutrophils Absolute Auto 10.4(H) 2.0 - 8.3 x10*3/uL [facility] Imm Gran Abs Auto 0.04(H) 0.00 - 0.03 X10*3/uL [facility] Lymphocytes Absolute Auto 1.9 1.2 - 4.9 X10*3/uL [facility] Monocytes Absolute Auto 0.7 0.1 - 1.2 X10*3/uL [facility] Eosinophils Absolute Auto 0.1 0.0 - 0.4 X10*3/uL [facility] Basophils Absolute Auto 0.0 0.0 - 0.2 X10*3/uL [facility] NRBC Abs Auto 0.000 0.0 - 0.012 X10*3/uL [facility] 12/29/2024 9:07 AM EDT 12/29/2024 9:11 AM EDT Generic External Data Provider LAB BLOOD ORDERAB LES Final Result Performing Organization Address City/[facility]/ZIP Co de Phone Number [facility] [address] [place] [phone] * (ABNORMAL) HCG, Qualitative, Urine (12/29/2024 9:07 AM EDT) Urine POSITIVE(A ) NEGATIVE [facility] 12/29/2024 9:07 AM EDT 12/29/2024 9:11 AM EDT Generic External Data Provider LAB URINE ORDERAB LES Final Result Performing Organization Address [facility] de Phone Number [facility] [address] [place] [phone] * (ABNORMAL) Comprehensive Metabolic Panel (12/29/2024 9:07 AM EDT) Sodium 137 135 - 145 mmol/L [facility] Potassium 4.1 3.3 - 5.1 mmol/L [facility] Chloride 103 96 - 108 mmol/L [facility] Carbon Dioxide 25 22 - 29 mmol/L [facility] Anion Gap 13 12 - 20 [facility] Urea Nitrogen (BUN) 7(L) 9 - 16 mg/dL [facility] Creatinine, Serum 0.61 0.5 - 1.4 mg/dL [facility] Creatinine Clr Calc Pharmacy 118.6 [facility] Comment:Provided height and weight: 154.94 cm,62.7 kg.eGFR (calculated from the MDRD study equation) and eCrCl(calculated from the Cockcroft-Gault equation) are based ondifferent parameters and may not yield comparable results.If eCrCl result is absurd, please check patient'sheight/weight. Estimated Glomerular Filt Rate >60 [facility] Comment:Chronic Kidney Disea se: Estimated GFR < 60 mL/min/[id number] Kidney Disease: Estimated GFR < 15 mL/min/1.73m2 Glucose 87 60 - 115 mg/dL [facility] Calcium 9.4 8.4 - 10.2 mg/dL [facility] Bilirubin, Total 1.2(H) 0.0 - 1.0 mg/dL [facility] Aspartate Amino Transferase 18 5 - 31 U/L [facility] Alanine Aminotransferase 13 0 - 31 U/L [facility] Total Protein 7.8 6.5 - 8.0 g/dL [facility] Albumin Level 4.7 3.5 - 5.0 g/dL [facility] Alkaline Phosphatase 37(L) 39 - 117 U/L [facility] 12/29/2024 9:07 AM EDT 12/29/2024 9:11 AM EDT us Generic External Data Provider LAB BLOOD ORDERAB LES Final Result Performing Organization Address City/State/[facility] Co de Phone Number [facility] [address] [place] [phone] * US Pelvis Transvaginal (10/28/2024 2:17 PM EDT) Anatomical Region Laterality Modality Pelvis Ultrasound 10/28/2024 2:17 PM EDT Narrative 10/28/2024 3:18 PM EDT [address] [address] Ultrasound Report Signed Patient: Elvie Mills MR# : [id number] : 2000 Acct:[id number] Age/Sex: 24 / F ADM Date: 10/28/24 Loc: HO.US Attending Dr: Kristy Cain MD Ordering Physician: Kristy Cain Date of Service: 10/28/24 Procedure(s): US pelvic and transvaginal Accession Number(s): [id number] cc: Kristy Cain EXAMINATION: US PELVIS TRANSABDOMINAL AND TRANSVAGINAL HISTORY: followup after ectopic COMPARISON: Comparison is made with the prior examination dated 09/07/2024. TECHNIQUE: Transabdominal and endovaginal real-time 2D solis-scale ultrasound was performed. FINDINGS: Uterus: The uterus is normal in size, measuring 9.1 x 2.9 x 4.7 cm. Myometrium has a normal echotexture. No fibroids are identified. The previously seen anechoic structure in the left cornu is no longer identified. Endometrium: The endometrial stripe measures 3 mm in thickness. There is trace fluid in the endometrial canal. There are calcifications adjacent to the endometrium. There are nabothian cysts in the cervix. Right ovary: The right ovary measures 4.4 x 3.0 x 2.9 cm. The right ovary is normal in echotexture. Numerous follicles are seen in the peripheral aspect of the ovary. Left ovary: The left ovary measures 3.9 x 2.4 x 3.2 cm. The left ovary demonstrates normal echotexture. Numerous follicles are seen in the peripheral aspect of the ovary. Pelvic fluid: none. US/US pelvic and transvaginal IMPRESSION: 1. Trace fluid in the endometrial canal. The previously seen anechoic structure in the left cornu is no longer identified. 2. Enlarged ovaries demonstrating multiple peripheral follicles suggestive of polycystic ovarian syndrome. Clinical correlation is recommended. Electronically signed by: Nicolas Mallory MD 10/28/2024 03:14 PM EDT Dictated By: Nicolas Mallory MD Signed By: <Electronically signed by Nicolas Mallory MD in OV> 10/28/24 1514 DD/ 1417 TD/TT: 10/28/24 1431 Deputy Fire Marshal: Procedure Note Donotuseinterpreter, Image - 10/28/2024 [place] [address] Ultrasound Report Signed Patient: Jerrica Millsaubrey# : [id number] : 2000Acct:[id number] Age/Sex: 24 / FADM Date: 10/28/24 Loc: HO.US Attending Dr: Kristy Cain MD Ordering Physician: Kristy Cain Date of Service: 10/28/24 Procedure(s): US pelvic and transvaginal Accession Number(s): [id number] cc: Kristy Cain EXAMINATION: US PELVIS TRANSABDOMINAL AND TRANSVAGINAL HISTORY: followup after ectopic COMPARISON: Comparison is made with the prior examination dated 09/07/2024. TECHNIQUE: Transabdominal and endovaginal real-time 2D solis-scale ultrasound was performed. FINDINGS: Uterus: The uterus is normal in size, measuring 9.1 x 2.9 x 4.7 cm. Myometrium has a normal echotexture. No fibroids are identified. The previously seen anechoic structure in the left cornu is no longer identified. Endometrium: The endometrial stripe measures 3 mm in thickness. There is trace fluid in the endometrial canal. There are calcifications adjacent to the endometrium. There are nabothian cysts in the cervix. Right ovary: The right ovary measures 4.4 x 3.0 x 2.9 cm. The right ovary is normal in echotexture. Numerous follicles are seen in the peripheral aspect of the ovary. Left ovary: The left ovary measures 3.9 x 2.4 x 3.2 cm. The left ovary demonstrates normal echotexture. Numerous follicles are seen in the peripheral aspect of the ovary. Pelvic fluid: none. US/US pelvic and transvaginal IMPRESSION: 1. Trace fluid in the endometrial canal. The previously seen anechoic structure in the left cornu is no longer identified. 2. Enlarged ovaries demonstrating multiple peripheral follicles suggestive of polycystic ovarian syndrome. Clinical correlation is recommended. Electronically signed by: Nicolas Mallory MD 10/28/2024 03:14 PM EDT Dictated By: Nicolas Mallory MD Signed By: <Electronically signed by Nicolas Mallory MD in OV> 10/28/24 1514 DD/ 1417 TD/TT: 10/28/24 1431 Deputy Fire Marshal: Kristy Cain MD IMG US PROCEDURES Final Result * (ABNORMAL) Bacterial Vaginosis Panel (10/09/2024 11:19 AM EDT) TRICHOMONAS VAGINALIS DETECTION BY PCR NOT DETECTED Not Detect [facility] BACTERIAL VAGINOSIS DETECTION BY PCR POSITIVE(A) Negative [facility] Comment:The BV organism targ ets [...] DETECTION BY PCR NOT DETECTED Not Detect [facility] Heather glab krusei PCR NOT DETECTED Not Detect [facility] Swab Vaginal structure / Unknown 10/09/2024 11:19 AM EDT 10/09/2024 4:27 PM EDT Kristy Cain MD LAB MICROBIOLOGY - GENERAL ORD ERABLES Final Result [facility] [address] [place] [phone] * HPV DNA, Low/High Risk (10/09/2024 11:19 AM EDT) HPV High Risk Negative Negative [facility] HPV Genotype 16 Negative Negative [facility] HPV Genotype 18 Negative Negative [facility] Comment:HPV testing performe d at [facility] (CLIA#[id number]), [address] [place] [phone].Testing for HPV was performed using the [employer] GlobalView Software0system. The presence of HPV in the female [...] MD LAB BLOOD ORDERABLES Final Res ult [facility] [address] [place] [address] [phone] * Chlamydia/N. Gonorrhoeae RNA, TMA, Urogenitial (10/09/2024 11:19 AM EDT) CT PCR NOT DETECTED Not Detect. [facility] Comment:A not detected test result [...] psychologicalconsequences. NG PCR NOT DETECTED Not Detect. [facility] Comment:A not detected test result [...] 11:19 AM EDT 10/09/2024 4:27 PM EDT [facility] - 10/09/2024 7:35 PM EDT Vaginal us Kristy Cain MD LAB MICROBIOLOGY - GENERAL ORD ERABLES Final Result [facility] [address] [place] [phone] * Pap Smear (10/09/2024 11:19 AM EDT) 10/09/2024 11:1 9 AM EDT 10/12/2024 8:15 AM EDT [facility] - 10/15/2024 3:29 PM EDT ----- ------- Name: Elvie Mills Age/Sex: / : 2000 Unit#: [id number] Attend Dr: Kristy Cain Re10/09/24 Status: DEP REF Location: HO.HHCLNP Disch: ----- ------- SPEC : [id number] RECD: 10/12/24 STATUS: NIRALI CHILD NUM: [id number] BRENDA: 10/09/24-[address]: Kristy Cain ENTERED: 10/12/24 SP TYPE: Pap Smr [facility] DR: ORDERED: Pap Smear Interpretation Satisfactory [...] and HPV testing will be performed at [facility] (CLIA #[id number]), [address] [place] [address]. Testing for HPV was performed using the [employer] GlobalView Software0 system. The presence of HPV in the [...] detected. All professional services are performed by [facility] ([address] [place] [id number]; ; CLIA #[id number]). The PAP Test is a screening procedure with the inherent possibility of both false negative and false positive results. Results should be interpreted in the context of historic and current clinical findings. Reliability of the PAP Test is enhanced by performing the test on a regular repetitive basis. CONTINUED ON NEXT PAGE ----- ------- Name: Luana Millsgustabo Age/Sex: 24/F : 2000 Unit#: [id number] Attend Dr: Kristy Cain Re10/09/24 Status: DEP REF Location: HO.HHCLNP Disch: ----- ------- SPEC : [id number] RECD: 10/12/24 STATUS: NIRALI CHILD NUM: [id number] BRENDA: 10/09/24-1119 [facility] DR: Kristy Cain ENTERED: 10/12/24 SP TYPE: Pap Jose CLIFFORD DR: ORDERED: Pap Smear ----- ------- Signed (signature on file) TERESITA Nix ([facility]) 10/15/24 1529 ----- ------- END OF REPORT Kristy Cain MD LAB CYTOLOGY ORDERABLES Final Result Performing Organization Address [facility] Co de Phone Number [facility] [address] [place] [phone] * hCG, Total, Quantitative (10/07/2024 1:56 PM EDT) HCG Quantitative 6 mIU/mL [facility] Comment:Weeks post LMP Appro ximate hCG(Last Menstrual Period) Range (mIU/ml)3 - 4 weeks 9 - 1304 - 5 weeks 75 - 2,6005 - 6 weeks 850 - 20,8006 - 7 weeks 4000 - 100,2007 - 12 weeks 11,500 - 289,17690 - 16 weeks 18,300 - 137,86604 - 29 weeks (2nd trimester) 1,400 - 53,02168 - 41 weeks (3rd trimester) 940 - [...] ORDERABLES Final Res ult Performing Organization Address [facility] Co de Phone Number [facility] [address] [place] [address] [phone] from Last 3 Months Insurance N [employer] [facility] Care Teams Lavatory Attendant Relationship Specialty Start Date End Date Kristy Cain MD [address] [place] [phone] PCP - General Family Medicine 12/25/19
--- OUTSIDE RECORDS SUMMARY | 2024-12-29 11:07 | XMS_ITS | Encounter Summary ---
Author Organization [employer] Address [address] [facility] 7 [place] [address] Care Team Providers Care Arts And Crafts Instructor Name Role Phone Kristy Cain MD Primary Care Provider [phone] Encounter Details Date Type Department Care Team (Latest Contact Info) Description 12/28/2024 Travel Social History Tobacco Use Types Packs/Day [...] as of this encounter Plan of Treatment Not on file documented as of this encounter Visit Diagnoses Not on filedocumented in this encounter Additional Health Concerns Assessment Noted Time PHQ-9 Depression Total Score: 3 09/22/19 25 2:21 PM EDT documented as of this encounter Care Teams Arts And Crafts Instructor Relationship Specialty Start Date End Date Kristy Cain MD [address] [place] [address] PCP - General Family Medicine 12/25/19 documented as of this encounter
[2024-12-29 11:37] VITALS: BP 95/54; PULSE 65; RESP 18; TEMP 36.3; O2SAT 100
[2024-12-29 13:16] VITALS: BP 103/49; PULSE 70; RESP 18; TEMP 36.9; O2SAT 97
--- NOTE | 2024-12-29 14:33 | P.CONOB_ITS ---
COAL HAULER OPERATOR - CN: HPI Data of Consult Consult date: 12/29/24 Primary Care Provider: Kristy Cain MD Consult Narrative Narrative: I was consulted on Elvie Coronel is a 24 year old female presents to the ED at 8 weeks of gestation complaining of right lower quadrant pain over the last 3 days associated withnausea and vomiting, no vaginal bleeding or discharge, no fever or chills, no diarrhea no urinary symptoms. History of irregular menstrual cycles LMP? She reports history of ectopic in August of this year (5 months ago). The following workup was done in the emergency room: White count 13.2 K, H&H 13.3/37.5 HCG= 120,807 Ab negative Ob ultrasound showed the following: There is a single intrauterine gestational sac with visible yolk sac, embryo/fetus, and cardiac activity. Trace perigestational sac crescents of fluid are present. The sac has a bilobed shape with incomplete versus hairline thin septation. Smaller lobulation off of the main gestational sac measures 2.0 x 1.2 cm and the larger portion of the sac containing fetus and yolk sac measures 2.1 x 3.2 cm.. HR: 174 beats per minute. CRL (crown rump length): 2.1 cm (8 weeks 6 days). FRED (estimated date of delivery): 08/04/2025 MATERNAL ADNEXA: The right maternal ovary measures 4.9 x 2.6 x 2.5 cm. There are numerous small peripheral follicles. The left maternal ovary measures 3.2 x 2.2 x 2.5 cm. There are numerous small peripheral follicles. There is no significant maternal adnexal mass. No maternal pelvic ascites. US/US OB pelvic and transvaginal IMPRESSION: Single living intrauterine gestation. Size and dates are not concordant. The size is smaller than suggested by dates. 2. Estimated gestational age by size is 8 weeks 6 days with estimated date of delivery 08/04/2025. Abnormal morphology of the gestational sac. It has a bilobed appearance with either an incomplete septation between the 2 lobulations or hairline thin septation. This could be related to an amniotic band, uterine synechia, or could indicate a failed monochorionic twin gestation. Recommend short interval follow-up. Small volume perigestational sac subchorionic fluid/hemorrhage could relate to sac implantation. Ovarian morphology with numerous peripheral follicles raises question of underlying polycystic ovarian syndrome. Abdominal ultrasound showed the following: IMPRESSION: Nonvisualized appendix cc:: CC: OB [facility] Past Medical History Medical History Patient denies significant medical history Surgical History Surgical History No significant past surgical history Meds Allergies Allergy/AdvReac Type Severity Reaction Status Date / Time No Known Allergies (No Known Allergy Verified 12/29/24 08:58 Allergies*) COAL HAULER OPERATOR Physical Exam Vitals Vital signs: Temp Pulse Resp BP Pulse Ox O2 Del Method 98.4 F 70 18 103/49 L 97 Room Air 12/29/24 13:16 12/29/24 13:16 12/29/24 13:16 12/29/24 13:16 12/29/24 13:16 12/29/24 13:16 BMI result Body Mass Index 26.1 Additional Comments: Reported byCam Jhaveri as the following: Abdomen: soft, TTP of RLQ w/ deep palpation, no rebound or guarding. negative rovsing sign. normoactive bs x4. pelvic exam deferred COAL HAULER OPERATOR - Results Labs 12/29/24 09:07 12/29/24 09:07 Labs: Short CBC 12/29/24 Range/Units 09:07 WBC 13.2 H (4.8-10.8) X10*3/uL Hgb 13.3 (12.0-16.0) g/dl Hct 37.5 (37.0-47.0) % Plt Count 179 (160-400) X10*3/uL BMP 12/29/24 09:07 Sodium 137 Potassium 4.1 Chloride 103 Carbon Dioxide 25 BUN 7 L Creatinine 0.61 Calcium 9.4 Liver Function 12/29/24 Range/Units 09:07 Total Bilirubin 1.2 H (0.0-1.0) mg/dL AST 18 (5-31) U/L ALT 13 (0-31) U/L Alkaline Phosphatase 37 L (39-117) U/L Albumin 4.7 (3.5-5.0) g/dL Urine 12/29/24 Range/Units 09:07 Urine Color Yellow Urine Appearance Clear Urine pH 6.5 (5.0-9.0) Ur Specific [place] 1.025 (1.005-1.025) Urine Protein Trace (Neg-Trace) mg/dL Urine Glucose (UA) Negative (Negative) mg/dL Urine Test POSITIVE H (NEGATIVE) Assessment and Plan (1) Abnormal US: Status: Acute Recommend the following: SAB warning to be given to patient, she is to come back to the emergency room in case of pelvic pain and or bleeding vitamin 1 tablet p.o. q.d. Close outpatient follow-up with repeat ultrasound on outpatient basis within few days Instructions to be given to patient to schedule an Outpatient follow up appointment with her OBGYN tito (2) Abdominal pain: Status: Acute Will defer the management abdominal pain to the emergency room team recommend General surgery consult and rule out appendicitis and other causes for abdominal pain I spent a total of 20 minutes reviewing the chart, communicating to the emergency room provider and documenting in the medical record.
[2024-12-29 16:21] VITALS: BP 111/52; PULSE 72; RESP 18; TEMP 36.7; O2SAT 99
== END 2024-12-29 16:36 | disposition home or self-care (01) ==
PROVIDERS: Emergency Medicine; Physician Assistant Medical; Emergency Provider Emergency Medicine Emergency Medical Services; PCP General Practice
DX: O26.91 Pregnancy related conditions, unspecified, first trimester (principal); R10.30 Lower abdominal pain, unspecified; R11.2 Nausea with vomiting, unspecified; R10.2 Pelvic and perineal pain; Z3A.08 8 weeks gestation of pregnancy; Z79.899 Other long term (current) drug therapy
CPT/HCPCS: 36415; 72195; 74181; 76705; 76801; 76817; 80053; 81001; 81025; 84702; 85025; 96360; 96361; 99284; 99285

== ENCOUNTER → 2024-12-29 09:35 | Outpatient (BNV) | payer OTHER, SELFPAY | PROVIDERS: Emergency Provider Emergency Medicine Emergency Medical Services; PCP General Practice; Visit Provider Obstetrics & Gynecology | DX: O28.3 Abnormal ultrasonic finding on antenatal screening of mother (principal); R10.9 Unspecified abdominal pain | CPT/HCPCS: 99447 ==

== ENCOUNTER → 2024-12-29 09:59 | Outpatient (BNV) | payer OTHER, SELFPAY | PROVIDERS: Emergency Provider Emergency Medicine; PCP General Practice; Visit Provider Radiology Diagnostic Radiology | DX: R10.31 Right lower quadrant pain (principal); Z3A.08 8 weeks gestation of pregnancy | CPT/HCPCS: 72195; 74181; 76705; 76801; 76817 ==

== ENCOUNTER 2025-01-04 15:20 | Outpatient (REF) | payer OTHER, SELFPAY ==
--- NOTE | ~2025-01-04 | US_ITS ---
CLINICAL HISTORY: 9 weeks gestation Early OB ultrasound. Findings: Intrauterine estimated gestational age 9 weeks 5 days. Estimated due date 08/04/2025. Heart rate 179 beats per minute. There are 2 small areas suspicious for subchorionic hemorrhage. The ovaries are unremarkable. No free fluid is seen. Impression: Intrauterine as described. Suspect small areas of subchorionic hemorrhage. Lobulated appearance of the gestational sac decreased from previous. Consider continued follow-up to assess for interval change. This document has been electronically signed by: Dejon Appiah MD on 01/04/2025 17:10:45
--- OUTSIDE RECORDS SUMMARY | 2025-01-04 20:48 | XMS_ITS | Encounter Summary ---
Author Organization [employer] Address [address] [place] [address] 7 [place] [address] Care Team Providers Care Manufacturing Plant Technician Name Role Phone Kristy Cain MD Primary Care Provider [phone] Reason for Visit * Reason Onset Date Comments Referral 12/31/2024 Encounter Details Date Type Department Care Team ([facility] st Contact Info) Description 12/31/2024 Telephone [facility] MEDICINE [address] [place], [place] [phone] Kristy Cain MD [address] [place], [place] [phone] Referral Social History Tobacco Use Types Packs/Day Years [...] encounter Miscellaneous Notes * Telephone Encounter - Stacie Mahan RN - 01/04/2025 12:32 PM EDT [employer] checked, US is booked for 3:30pm * Telephone Encounter - Stacie Mahan RN - 01/01/2025 10:45 AM EDT FYI r/t stat referral from referral team: Type Date User Summary Attachment Internal Referral Comments 01/01/2025 10:06 AM Minnie Damon COMMENTS - Note: Referral faxed to office. Office will review, call, schedule, and fax back appt details. - pending appt. Drafter will f/u if not heard back. Referral letter also sent letter via [employer] to pt making her aware of referral and to call if not heard back from office within a week. Drafter called [facility] to inform them of referral. Staff stated it would take 7-10 business days for pt to receive a call. Please advise on if US can be ordered and I will call pt. And let them know about the order and referral as well, thank you!! * Telephone Encounter - Stacie Mahan RN - 12/31/2024 10:05 AM EDT Noted pt. In ED 12/29/24 for abd pain, N/V. Positive for , US showed [id number] however abnormal morphology of gestational sac. They recommended repeat US in a few days with pt.'s OBGYN at [facility],or return to ED for repeat if unable to secure appt. TC placed to [facility], they report pt. Is not an established pt. With their office as she wasonly seen at [facility] on an emergency basis back in August for ectopic, and not in the office for prenatalcare. Therefore pt. Would be considered a new patient and would need a referral. ED note scanned into chart. * Telephone Encounter - Ozzie Silva - 12/31/2024 8:21 AM EDT Tc from pt requesting a referral for an OBGYN due to . Contact pt to let her know where the referral was sent. [phone] documented in this encounter Plan of Treatment Not on file documented as of this encounter Visit Diagnoses Not on filedocumented in this encounter Additional Health Concerns Assessment Noted Time PHQ-9 Depression Total Score: 3 09/22/19 25 2:21 PM EDT documented as of this encounter Care Teams Manufacturing Plant Technician Relationship Specialty Start Date End Date Kristy Cain MD [address] [place] [id number] PCP - General Family Medicine 12/25/19 documented as of this encounter
--- OUTSIDE RECORDS SUMMARY | 2025-01-04 20:48 | XMS_ITS | Encounter Summary ---
Author Organization [employer] Address [address] [place] [address] [address] [place] [address] Care Team Providers Care Business Leader Name Role Phone Kristy Cain MD Primary Care Provider [phone] Reason for Visit * Reason Onset Date Comments Results 10/15/2024 Encounter Details Date Type Department Care Team ([facility] st Contact Info) Description 10/15/2024 Results Follow-Up [facility] MEDICINE [address] [place] [address] Kristy Cain MD [address] [place] [address] HPV DNA, Low/High Risk, Pap Smear, Urinalysis, Complete, with Reflex to Culture, Additional followed-up results: 3 Social History Tobacco Use Types Packs/Day Years [...] as of this encounter Miscellaneous Notes * Result Encounter Note - Kristy Cain MD - 01/01/2025 8:32 AM EDT Please contact patient and make sure that she has been able to schedule with [facility] for pregnancy[facility]. If not, we need to arrange repeat US for her. * Telephone Encounter - Gabby Sherman RN - 10/16/2024 9:54 AM EDT TC placed to patient [phone] in regards to PAP results. Patient verbalized understanding. BV was previously addressed by Dr. Bah and medication was sent to the pharmacy. Patient to f/u PRN. ----- Message from Kristy Cain MD sent at 10/15/2024 5:18 PM EDT ----- Please let patient know pap smear normal cells and HPV negative. Her labs did show BV, how would she like it treated? ----- Message ----- From: Interface, Lab Results In Sent: 10/15/2024 2:28 PM EDT To: Kristy Cain MD * Result Encounter Note - Kristy Cain MD - 10/15/2024 5:18 PM EDT Please let patient know pap smear normal cells and HPV negative. Her labs did show BV, how would she like it treated? documented in this encounter Plan of Treatment Not on file documented as of this encounter Visit Diagnoses Not on filedocumented in this encounter Additional Health Concerns Assessment Noted Time PHQ-9 Depression Total Score: 3 09/22/19 25 2:21 PM EDT documented as of this encounter Care Teams Business Leader Relationship Specialty Start Date End Date Kristy Cain MD [address] [place] [id number] PCP - General Family Medicine 12/25/19 documented as of this encounter
--- OUTSIDE RECORDS SUMMARY | 2025-01-04 20:48 | XMS_ITS | Encounter Summary ---
Author Organization [employer] Address [address] [facility] [address], [place] [address] Care Team Providers Care Wood Die Maker Name Role Phone Kristy Cain MD Primary Care Provider [phone] Reason for Referral * Imaging (STAT) - Authorized Specialty Diagnoses / Procedures Referred By Contac t Referred To Contact Radiology Diagnoses with 9 completed weeks gestation Abnormal yolk sac during first trimester, single or unspecified fetus Procedures US OB Pelvis with Transvaginal Kristy Cain MD [address] [place] [address] Phone: tel: fax: [address] Phone: tel: fax: Referral ID Status Reason Start Date Expiration Date V isits Requested Visits Authorized [id number] Authorized 01/04/2025 01/04/2026 1 1 * Consultation (STAT) - Authorized Specialty Diagnoses / Procedures Referred By Contac t Referred To Contact Obstetrics and Gynecology Diagnoses with 9 completed weeks gestation Abnormal yolk sac during first trimester, single or unspecified fetus Kristy Cain MD [address] [place] [address] Phone: tel: fax: [facility] [address] [place], [place] Phone: tel: fax: Referral ID Status Reason Start Date Expiration Date Visits Requested Visits Authorized [id number] Authorized Specialty Services Required 01/01/2025 12/31/2025 30 30 Encounter Details Date Type Department Care Team (Late st Contact Info) Description 01/01/2025 Orders Only [facility] MEDICINE [address] [place] [address] Kristy Cain MD [address] [place] [address] with 9 completed weeks gestation (Primary Dx); Abnormal yolk sac during first trimester, single or unspecified fetus Social History Tobacco Use Types Packs/Day Years [...] as of this encounter Plan of Treatment Scheduled Orders Name Type Priority Associated Diagnoses Orde r Schedule US OB Pelvis with Transvaginal Imaging STAT with 9 completed weeks gestation Abnormal yolk sac during first trimester, single or unspecified fetus Expected: 01/04/2025, Expires: 01/04/2026 Scheduled Referrals Name Type Priority Associated Diagnoses Orde r Schedule Referral to Obstetrics / Gynecology Outpatient Referral STAT with 9 completed weeks gestation Abnormal yolk sac during first trimester, single or unspecified fetus Expected: 01/01/2025 (Approximate), Expires: 01/01/2026 documented as of this encounter Visit Diagnoses Diagnosis with 9 completed weeks gestation- Primary Abnormal yolk sac during first trimester, single or unspecified fetus documented in this encounter Additional Health Concerns Assessment Noted Time PHQ-9 Depression Total Score: 3 09/22/19 25 2:21 PM EDT documented as of this encounter Care Teams Wood Die Maker Relationship Specialty Start Date End Date Kristy Cain MD [address] [place] [id number] PCP - General Family Medicine 12/25/19 documented as of this encounter
--- OUTSIDE RECORDS SUMMARY | 2025-01-04 20:48 | XMS_ITS | Clinical Summary ---
Author Organization [employer] Address [address] [place] [address] 7 [place] [address] Care Team Providers Care Medical Records Supervisor Name Role Phone Kristy Cain MD Primary Care Provider [phone] Allergies No known active allergies Medications Vit-Fe [...] Encounters Date Type Department Care Team Description 01/01/2025 Orders Only [address] [address] Kristy Cain MD with 9 completed weeks gestation (Primary Dx); Abnormal yolk sac during first trimester, single or unspecified fetus 12/31/[address] [address] Kristy Cain MD Referral 12/29/2024 Orders Only [facility] External Provider, [facility] 12/28/2024 2:20 PM EDT Office Visit [facility] [address] [place] [phone] Amina Rothman FNP Environmental and seasonal allergies (Primary Dx) 12/28/2024 Travel 10/15/2024 Results Follow-Up [address] [address] Kristy Cain MD HPV DNA, Low/High Risk, Pap Smear, Urinalysis, Complete, with Reflex to Culture, Additional followed-up results: 3 10/11/2024 Results Follow-Up [address] [address] Kristy Cain MD Chlamydia/N. Gonorrhoeae RNA, TMA, Urogenitial, Bacterial Vaginosis Panel 10/09/2024 11:00 AM EDT Procedure Visit [address] [address] Kristy Cain MD Screening for cervical cancer (Primary Dx) 10/09/2024 Orders Only [address] [address] Kristy Cain MD 10/09/[address] [address] Kristy Cain MD Letter for School/Work 10/09/2024 Travel 10/07/[address] [address] Kristy Cain MD CHART PREP from Last [...] Procedure Name Priority Date/Time Associated Diagnosis Comments MR ABDOMEN WO CONTRAST Routine 12/29/2024 2:40 PM EDT MR PELVIS WO CONTRAST Routine 12/29/2024 2:39 PM EDT US PELVIS APPENDIX Routine 12/29/2024 12 :22 PM EDT US OB PELVIS TRANSVAGINAL Routine 12/29/2024 10:53 AM EDT COMPREHENSIVE METABOLIC PANEL Routine 12/29/2024 9:07 AM [...] present from Last 3 Months Results * MR Abdomen w/o Contrast (12/29/2024 2:40 PM EDT) Anatomical Region Laterality Modality Abdomen Magnetic Resonan ce 12/29/2024 2:40 PM EDT Narrative 12/29/2024 3:32 PM EDT [place] [address] Magnetic Resonance Report Signed Patient: Elvie Mills MR# : [id number] : 2000 Acct:[id number] Age/Sex: 24 / F ADM Date: 12/29/24 Loc: .ED Attending Dr: Ordering Physician: Malini Levy Date of Service: 12/29/24 Procedure(s): MR abdomen wo con Accession Number(s): [id number] cc: Kristy Cain; Malini Levy Reason for Exam: RLQ pain, , r/o appendicitis EXAMINATION: MR PELVIS WITHOUT IV CONTRAST, MR ABDOMEN WITHOUT IV CONTRAST HISTORY: RLQ pain r/o appendicitis. TECHNIQUE: Axial in and out of phase T1-weighted gradient echo, and fat suppressed T2, coronal T2 and fat-suppressed T2, and sagittal T2 and fat-suppressed T2 weighted MR images of the abdomen and pelvis were obtained. COMPARISON: Correlation is made with an ultrasound of the appendix performed earlier in the day and a CT of the abdomen and pelvis dated 05/27/2022. FINDINGS: The liver is normal in size. There is no loss of signal intensity on opposed phase imaging to suggest steatosis. The gallbladder, spleen, pancreas, adrenals, and kidneys are unremarkable. An intrauterine gestation is noted. The ovaries are normal in size. A normal appendix is visualized (series 3, images 18-21). There is no free fluid or lymphadenopathy. No right lower quadrant inflammatory process is identified. The visualized bones demonstrate normal marrow signal intensity. MR/MR abdomen wo con IMPRESSION: Intrauterine gestation. Otherwise unremarkable MRI of the abdomen and pelvis. A normal appendix is visualized. Electronically signed by: Nicolas Mallory MD 12/29/2024 03:29 PM EDT Dictated By: Nicolas Mallory MD Signed By: <Electronically signed by Nicolas Mallory MD in OV> 12/29/24 1529 DD/ 1440 TD/TT: 12/29/24 1459 Palm Gatherer: Procedure Note Donotuseinterpreter, Image - 12/29/[address] [address] Magnetic Resonance Report Signed Patient: Elvie Mills# : [id number] : 2000Acct:[id number] Age/Sex: 24 / FADM Date: 12/29/24 Loc: HO.ED Attending Dr: Ordering Physician: Malini Levy Date of Service: 12/29/24 Procedure(s): MR abdomen wo con Accession Number(s): [id number] cc: Kristy Cain; Malini Levy Reason for Exam: RLQ pain, , r/o appendicitis EXAMINATION: MR PELVIS WITHOUT IV CONTRAST, MR ABDOMEN WITHOUT IV CONTRAST HISTORY: RLQ pain r/o appendicitis. TECHNIQUE: Axial in and out of phase T1-weighted gradient echo, and fat suppressed T2, coronal T2 and fat-suppressed T2, and sagittal T2 and fat-suppressed T2 weighted MR images of the abdomen and pelvis were obtained. COMPARISON: Correlation is made with an ultrasound of the appendix performed earlier in the day and a CT of the abdomen and pelvis dated 05/27/2022. FINDINGS: The liver is normal in size. There is no loss of signal intensity on opposed phase imaging to suggest steatosis. The gallbladder, spleen, pancreas, adrenals, and kidneys are unremarkable. An intrauterine gestation is noted. The ovaries are normal in size. A normal appendix is visualized (series 3, images 18-21). There is no free fluid or lymphadenopathy. No right lower quadrant inflammatory process is identified. The visualized bones demonstrate normal marrow signal intensity. MR/MR abdomen wo con IMPRESSION: Intrauterine gestation. Otherwise unremarkable MRI of the abdomen and pelvis. A normal appendix is visualized. Electronically signed by: Nciolas Mallory MD 12/29/2024 03:29 PM EDT Dictated By: Nciolas Mallory MD Signed By: <Electronically signed by Nicolas Mallory MD in OV> 12/29/24 1529 DD/ 1440 TD/TT: 12/29/24 1459 Palm Gatherer: [facility] External Provider IMG MRI PROCEDURES Final Result * MR Pelvis w/o Contrast (12/29/2024 2:39 PM EDT) Anatomical Region Laterality Modality Body, Pelvis Magnetic Resonan ce 12/29/2024 2:39 PM EDT Narrative 12/29/2024 3:32 PM EDT [address] [address] Magnetic Resonance Report Signed Patient: Elvie Mills MR# : [id number] : 2000 Acct:[id number] Age/Sex: 24 / F ADM Date: 12/29/24 Loc: HO.ED Attending Dr: Ordering Physician: Malini Levy Date of Service: 12/29/24 Procedure(s): MR pelvis wo con Accession Number(s): [id number] cc: Kristy Cain; Malini Levy Reason for Exam: RLQ pain r/o appendicitis EXAMINATION: MR PELVIS WITHOUT IV CONTRAST, MR ABDOMEN WITHOUT IV CONTRAST HISTORY: RLQ pain r/o appendicitis. TECHNIQUE: Axial in and out of phase T1-weighted gradient echo, and fat suppressed T2, coronal T2 and fat-suppressed T2, and sagittal T2 and fat-suppressed T2 weighted MR images of the abdomen and pelvis were obtained. COMPARISON: Correlation is made with an ultrasound of the appendix performed earlier in the day and a CT of the abdomen and pelvis dated 05/27/2022. FINDINGS: The liver is normal in size. There is no loss of signal intensity on opposed phase imaging to suggest steatosis. The gallbladder, spleen, pancreas, adrenals, and kidneys are unremarkable. An intrauterine gestation is noted. The ovaries are normal in size. A normal appendix is visualized (series 3, images 18-21). There is no free fluid or lymphadenopathy. No right lower quadrant inflammatory process is identified. The visualized bones demonstrate normal marrow signal intensity. MR/MR pelvis wo con IMPRESSION: Intrauterine gestation. Otherwise unremarkable MRI of the abdomen and pelvis. A normal appendix is visualized. Electronically signed by: Nicolas Mallory MD 12/29/2024 03:29 PM EDT Dictated By: Nicolas Mallory MD Signed By: <Electronically signed by Nicolas Mallory MD in OV> 12/29/24 1529 DD/ 1439 TD/TT: 12/29/24 1459 Palm Gatherer: Procedure Note Ziater, Image - 12/29/2024 [place] [address] Magnetic Resonance Report Signed Patient: Elvie Mills# : [id number] : 2000Acct:[id number] Age/Sex: 24 / FADM Date: 12/29/24 Loc: HO.ED Attending Dr: Ordering Physician: Malini Levy Date of Service: 12/29/24 Procedure(s): MR pelvis wo con Accession Number(s): [id number] cc: Kristy Cain; Malini Levy Reason for Exam: RLQ pain r/o appendicitis EXAMINATION: MR PELVIS WITHOUT IV CONTRAST, MR ABDOMEN WITHOUT IV CONTRAST HISTORY: RLQ pain r/o appendicitis. TECHNIQUE: Axial in and out of phase T1-weighted gradient echo, and fat suppressed T2, coronal T2 and fat-suppressed T2, and sagittal T2 and fat-suppressed T2 weighted MR images of the abdomen and pelvis were obtained. COMPARISON: Correlation is made with an ultrasound of the appendix performed earlier in the day and a CT of the abdomen and pelvis dated 05/27/2022. FINDINGS: The liver is normal in size. There is no loss of signal intensity on opposed phase imaging to suggest steatosis. The gallbladder, spleen, pancreas, adrenals, and kidneys are unremarkable. An intrauterine gestation is noted. The ovaries are normal in size. A normal appendix is visualized (series 3, images 18-21). There is no free fluid or lymphadenopathy. No right lower quadrant inflammatory process is identified. The visualized bones demonstrate normal marrow signal intensity. MR/MR pelvis wo con IMPRESSION: Intrauterine gestation. Otherwise unremarkable MRI of the abdomen and pelvis. A normal appendix is visualized. Electronically signed by: Nicolas Mallory MD 12/29/2024 03:29 PM EDT RP Dictated By: Nicolas Mallory MD Signed By: <Electronically signed by Nicolas Mallory MD in OV> 12/29/24 1529 DD/ 1439 TD/TT: 12/29/24 1459 Palm Gatherer: us [facility] External Provider IMG MRI PROCEDURES Final Result * US Pelvis Appendix (12/29/2024 12:22 PM EDT) Anatomical Region Laterality Modality Pelvis Ultrasound 12/29/2024 12:2 2 PM EDT Narrative 12/29/2024 12:52 PM EDT [address] [address] Ultrasound Report Signed Patient: Elvie Mills MR# : [id number] : 2000 Acct:[id number] Age/Sex: 24 / F ADM Date: 12/29/24 Loc: .ED Attending Dr: Ordering Physician: Malini Levy Date of Service: 12/29/24 Procedure(s): US appendix Accession Number(s): [id number] cc: Kristy Cain; Malini Levy Reason for Exam: RLQ pain Examination: Ultrasound appendix INDICATION: Right lower quadrant pain. Prior: CT abdomen and pelvis from May 27, 2022 FINDINGS: Normal anatomic structures and a portion of a gestational sac within the uterus are identified in the right lower quadrant. However, the appendix is not identified. No free fluid is evident. Visualized portions of liver, gallbladder, and right kidney are unremarkable. US/US appendix IMPRESSION: Nonvisualized appendix Electronically signed by: Kevin Smith MD 12/29/2024 12:49 PM EDT RP Dictated By: Kevin Smith MD Signed By: <Electronically signed by Kevin Smith MD in OV> 12/29/24 1249 DD/ 1222 TD/TT: 12/29/24 1228 Palm Gatherer: Procedure Note Donharister, Image - 12/29/[address] [address] Ultrasound Report Signed Patient: Elvie MillsMR# : [id number] : 2000Acct:[id number] Age/Sex: 24 / FADM Date: 12/29/24 Loc: HO.ED Attending Dr: Ordering Physician: Malini Levy Date of Service: 12/29/24 Procedure(s): US appendix Accession Number(s): [id number] cc: Kristy Cain; Malini Levy Reason for Exam: RLQ pain Examination: Ultrasound appendix INDICATION: Right lower quadrant pain. Prior: CT abdomen and pelvis from May 27, 2022 FINDINGS: Normal anatomic structures and a portion of a gestational sac within the uterus are identified in the right lower quadrant. However, the appendix is not identified. No free fluid is evident. Visualized portions of liver, gallbladder, and right kidney are unremarkable. US/US appendix IMPRESSION: Nonvisualized appendix Electronically signed by: Kevin Smith MD 12/29/2024 12:49 PM EDT Dictated By: Kevin Smith MD Signed By: <Electronically signed by Kevin Smith MD in OV> 12/29/24 1249 DD/ 1222 TD/TT: 12/29/24 1228 Palm Gatherer: us [facility] External Provider IMG US PROCEDURES Final Result * US OB Pelvis with Transvaginal (12/29/2024 10:53 AM EDT) Anatomical Region Laterality Modality Pelvis Ultrasound 12/29/2024 10:5 3 AM EDT Narrative 12/29/2024 12:11 PM EDT [address] [address] Ultrasound Report Signed Patient: Elvie Mills MR# : [id number] : 2000 Acct:[id number] Age/Sex: 24 / F ADM Date: 12/29/24 Loc: HO.ED Attending Dr: Ordering Physician: Malini Levy Date of Service: 12/29/24 Procedure(s): US OB pelvic and transvaginal Accession Number(s): [id number] cc: Kristy Cain; Malini Levy Reason for Exam: +preg, RLQ pain EXAMINATION: US OBSTETRICAL ULTRASOUND CLINICAL INFORMATION: Right lower quadrant pain, COMPARISON: None relevant LMP: 09/22/2024. Gestational age by maternal dates is 14 weeks 0 days. Estimated date of delivery by maternal dates is 06/29/2025. TECHNIQUE: Transabdominal transvaginal ultrasound with color Doppler and B-mode FINDINGS: There is a single intrauterine gestational sac with visible yolk sac, embryo/fetus, and cardiac activity. Trace perigestational sac crescents of fluid are present. The sac has a bilobed shape with incomplete versus hairline thin septation. Smaller lobulation off of the main gestational sac measures 2.0 x 1.2 cm and the larger portion of the sac containing fetus and yolk sac measures 2.1 x 3.2 cm.. HR: 174 beats per minute. CRL (crown rump length): 2.1 cm (8 weeks 6 days). FRED (estimated date of delivery): 08/04/2025 MATERNAL ADNEXA: The right maternal ovary measures 4.9 x 2.6 x 2.5 cm. There are numerous small peripheral follicles. The left maternal ovary measures 3.2 x 2.2 x 2.5 cm. There are numerous small peripheral follicles. There is no significant maternal adnexal mass. No maternal pelvic ascites. US/US OB pelvic and transvaginal IMPRESSION: Single living intrauterine gestation. Size and dates are not concordant. The size is smaller than suggested by dates. 2. Estimated gestational age by size is 8 weeks 6 days with estimated date of delivery 08/04/2025. Abnormal morphology of the gestational sac. It has a bilobed appearance with either an incomplete septation between the 2 lobulations or hairline thin septation. This could be related to an amniotic band, uterine synechia, or could indicate a failed monochorionic twin gestation. Recommend short interval follow-up. Small volume perigestational sac subchorionic fluid/hemorrhage could relate to sac implantation. Ovarian morphology with numerous peripheral follicles raises question of underlying polycystic ovarian syndrome. Electronically signed by: Kevin Smith MD 12/29/2024 12:08 PM EDT RP Dictated By: Kevin Smith MD Signed By: <Electronically signed by Kevin Smith MD in OV> 12/29/24 1208 DD/ 1053 TD/TT: 12/29/24 1112 Palm Gatherer: Procedure Note Donotuseinterpreter, Image - 12/29/2024 [place] [address] Ultrasound Report Signed Patient: Elvie Mills# : [id number] : 2000Acct:[id number] Age/Sex: 24 / FADM Date: 12/29/24 Loc: .ED Attending Dr: Ordering Physician: Malini Levy Date of Service: 12/29/24 Procedure(s): US OB pelvic and transvaginal Accession Number(s): [id number] cc: Kristy Cain; Malini Levy Reason for Exam: +preg, RLQ pain EXAMINATION: US OBSTETRICAL ULTRASOUND CLINICAL INFORMATION: Right lower quadrant pain, COMPARISON: None relevant LMP: 09/22/2024. Gestational age by maternal dates is 14 weeks 0 days. Estimated date of delivery by maternal dates is 06/29/2025. TECHNIQUE: Transabdominal transvaginal ultrasound with color Doppler and B-mode FINDINGS: There is a single intrauterine gestational sac with visible yolk sac, embryo/fetus, and cardiac activity. Trace perigestational sac crescents of fluid are present. The sac has a bilobed shape with incomplete versus hairline thin septation. Smaller lobulation off of the main gestational sac measures 2.0 x 1.2 cm and the larger portion of the sac containing fetus and yolk sac measures 2.1 x 3.2 cm.. HR: 174 beats per minute. CRL (crown rump length): 2.1 cm (8 weeks 6 days). FRED (estimated date of delivery): 08/04/2025 MATERNAL ADNEXA: The right maternal ovary measures 4.9 x 2.6 x 2.5 cm. There are numerous small peripheral follicles. The left maternal ovary measures 3.2 x 2.2 x 2.5 cm. There are numerous small peripheral follicles. There is no significant maternal adnexal mass. No maternal pelvic ascites. US/US OB pelvic and transvaginal IMPRESSION: Single living intrauterine gestation. Size and dates are not concordant. The size is smaller than suggested by dates. 2. Estimated gestational age by size is 8 weeks 6 days with estimated date of delivery 08/04/2025. Abnormal morphology of the gestational sac. It has a bilobed appearance with either an incomplete septation between the 2 lobulations or hairline thin septation. This could be related to an amniotic band, uterine synechia, or could indicate a failed monochorionic twin gestation. Recommend short interval follow-up. Small volume perigestational sac subchorionic fluid/hemorrhage could relate to sac implantation. Ovarian morphology with numerous peripheral follicles raises question of underlying polycystic ovarian syndrome. Electronically signed by: Kevin Smith MD 12/29/2024 12:08 PM EDT Dictated By: Kevin Smith MD Signed By: <Electronically signed by Kevin Smith MD in OV> 12/29/24 1208 DD/ 1053 TD/TT: 12/29/24 1112 Palm Gatherer: us [facility] External Provider IMG US PROCEDURES Edited Result - Final * (ABNORMAL) Urinalysis, Complete, with Reflex to Culture (12/29/2024 9:07 AM EDT) Color Urine Yellow [facility] Appearance Urine Clear [facility] PH 6.5 5.0 - 9.0 [facility] Glucose Urine UA Negative Negative mg/dL [facility] Urine Blood Negative Negative [facility] Specific Stanley - Urine 1.025 1.005 - 1.025 [facility] Urine Protein Trace Neg-Trace mg/dL [facility] Urine Ketones Trace Negative mg/dL [facility] Nitrite Urine Negative Negative [facility] Leukocyte Esterase Urine Trace(A) Negative [facility] RBC Urine 0-2 0 - 2 /HPF [facility] Urine WBC 0-5 0 - 5 /HPF [facility] Urine Squamous Epithelial Cell 0-2 0 - 2 /HPF [facility] Urine Bacteria None Seen None Seen [facility] Hyaline Casts, Urine 3-5 0 - 2 /LPF [facility] 12/29/2024 9:07 AM EDT 12/29/2024 9:11 AM EDT Narrative [facility] - 12/29/2024 9:21 AM EDT [id number], Clean Catch us Generic External Data Provider LAB URINE ORDERAB LES Final Result [facility] [address] [place] [address] [phone] * (ABNORMAL) CBC auto differential (12/29/2024 9:07 AM EDT) White Blood Count 13.2(H) 4.8 - 10.8 X10*3/uL [facility] Red Blood Count 4.20 4.20 - 5.50 X10*6/uL [facility] Hemoglobin 13.3 12.0 - 16.0 g/dl [facility] Hematocrit 37.5 37.0 - 47.0 % [facility] Mean Corpuscular Volume 89.3 80.0 - 98.0 fL [facility] Mean Corpuscular Hemoglobin 31.7 27.0 - 33.0 pg [facility] Mean Corpuscular HGB Conc 35.5(H) 31.0 - 35.0 g/dl [facility] Red Cell Distribution Width 12.2 11.0 - 16.0 % [facility] Platelet Count 179 160 - 400 X10*3/uL [facility] Mean Platelet Volume 9.9 9.4 - 12.3 fL [facility] Neutrophils Percent Auto 78.8(H) 45 - 73 % [facility] Imm Gran Pct Auto 0.3 0.0 - 0.4 % [facility] Lymphocytes Percent Auto 14.7(L) 20 - 40 % [facility] Monocytes Percent Auto 5.4 2 - 11 % [facility] Eosinophils Percent Auto 0.6 0 - 4 % [facility] Basophils Percent Auto 0.2 0 - 2 % [facility] NRBC Pct Auto 0.0 0.0 - 0.2 /100WBC [facility] Neutrophils Absolute Auto 10.4(H) 2.0 - 8.3 x10*3/uL [facility] Imm Gran Abs Auto 0.04(H) 0.00 - 0.03 X10*3/uL [facility] Lymphocytes Absolute Auto 1.9 1.2 - 4.9 X10*3/uL [facility] Monocytes Absolute Auto 0.7 0.1 - 1.2 X10*3/uL [facility] Eosinophils Absolute Auto 0.1 0.0 - 0.4 X10*3/uL [facility] Basophils Absolute Auto 0.0 0.0 - 0.2 X10*3/uL [facility] NRBC Abs Auto 0.000 0.0 - 0.012 X10*3/uL [facility] 12/29/2024 9:07 AM EDT 12/29/2024 9:11 AM EDT us Generic External Data Provider LAB BLOOD ORDERAB LES Final Result [facility] [address] [place] [address] [phone] * (ABNORMAL) HCG, Qualitative, Urine (12/29/2024 9:07 AM EDT) Urine POSITIVE(A ) NEGATIVE [facility] 12/29/2024 9:07 AM EDT 12/29/2024 9:11 AM EDT us Generic External Data Provider LAB URINE ORDERAB LES Final Result [facility] [address] [place] [address] [phone] * (ABNORMAL) Comprehensive Metabolic Panel (12/29/2024 9:07 AM EDT) Sodium 137 135 - 145 mmol/L [facility] Potassium 4.1 3.3 - 5.1 mmol/L [facility] Chloride 103 96 - 108 mmol/L [facility] Carbon Dioxide 25 22 - 29 mmol/L [facility] Anion Gap 13 12 - 20 [facility] Urea Nitrogen (BUN) 7(L) 9 - 16 mg/dL [facility] Creatinine, Serum 0.61 0.5 - 1.4 mg/dL [facility] Creatinine Clr Calc Pharmacy 118.6 [facility] Comment:Provided height and weight: 154.94 cm,62.7 kg.eGFR (calculated from the MDRD study equation) and eCrCl(calculated from the Cockcroft-Gault equation) are based ondifferent parameters and may not yield comparable results.If eCrCl result is absurd, please check patient'sheight/weight. Estimated Glomerular Filt Rate >60 [facility] Comment:Chronic Kidney Disea se: Estimated GFR < 60 mL/min/1.65d4Miwuaf Kidney Disease: Estimated GFR < 15 mL/min/1.73m2 Glucose 87 60 - 115 mg/dL [facility] Calcium 9.4 8.4 - 10.2 mg/dL [facility] Bilirubin, Total 1.2(H) 0.0 - 1.0 mg/dL [facility] Aspartate Amino Transferase 18 5 - 31 U/L [facility] Alanine Aminotransferase 13 0 - 31 U/L [facility] Total Protein 7.8 6.5 - 8.0 g/dL [facility] Albumin Level 4.7 3.5 - 5.0 g/dL [facility] Alkaline Phosphatase 37(L) 39 - 117 U/L [facility] 12/29/2024 9:07 AM EDT 12/29/2024 9:11 AM EDT us Generic External Data Provider LAB BLOOD ORDERAB LES Final Result Performing Organization Address City/State/[facility] Co de Phone Number [facility] [address] [place] [phone] * US Pelvis Transvaginal (10/28/2024 2:17 PM EDT) Anatomical Region Laterality Modality Pelvis Ultrasound 10/28/2024 2:17 PM EDT Narrative 10/28/2024 3:18 PM EDT [address] [address] Ultrasound Report Signed Patient: Elvie Mills MR# : [id number] : 2000 Acct:[id number] Age/Sex: 24 / F ADM Date: 10/28/24 Loc: HO.US Attending Dr: Kristy Cain MD Ordering Physician: Kristy Cain Date of Service: 10/28/24 Procedure(s): US pelvic and transvaginal Accession Number(s): [id number] cc: Kristy Cain EXAMINATION: US PELVIS TRANSABDOMINAL [...] 10/28/24 1514 DD/ 1417 TD/TT: 10/28/24 1431 Palm Gatherer: Procedure Note Donotuseinterpreter, Image - 10/28/2024 [place] [address] Ultrasound Report Signed Patient: Elvie Mills# : [id number] : 2000Acct:[id number] Age/Sex: 24 / FADM Date: 10/28/24 Loc: HO.US Attending Dr: Kristy Cain MD Ordering Physician: Kristy Cain Date of Service: 10/28/24 Procedure(s): US pelvic and transvaginal Accession Number(s): [id number] cc: Kristy Cain EXAMINATION: US PELVIS TRANSABDOMINAL [...] 10/28/24 1514 DD/ 1417 TD/TT: 10/28/24 1431 Palm Gatherer: us Kristy Cain MD [facility] [facility] US PROCEDURES Final Result * (ABNORMAL) Bacterial Vaginosis Panel (10/09/2024 11:19 AM EDT) TRICHOMONAS VAGINALIS DETECTION BY PCR NOT DETECTED Not Detect [facility] BACTERIAL VAGINOSIS DETECTION BY PCR POSITIVE(A) Negative [facility] Comment:The BV organism targ [...] DETECTION BY PCR NOT DETECTED Not Detect [facility] Heather glab krusei PCR NOT DETECTED Not Detect [facility] Swab Vaginal structure / Unknown 10/09/2024 11:19 AM EDT 10/09/2024 4:27 PM EDT Kristy Cain MD LAB MICROBIOLOGY - GENERAL ORD ERABLES Final Result Performing Organization Address [facility]/ZIP Co de Phone Number [facility] [address] [place] [phone] * HPV DNA, Low/High Risk (10/09/2024 11:19 AM EDT) HPV High Risk Negative Negative [facility] HPV Genotype 16 Negative Negative [facility] HPV Genotype 18 Negative Negative [facility] Comment:HPV testing performe d at [facility] (CLIA#[id number]), [address] [place] [address].Testing for HPV was performed using the [employer] 6800system. The presence of HPV in the female [...] 9 AM EDT 10/12/2024 8:15 AM EDT Kristy Cain MD LAB BLOOD ORDERABLES Final Res ult Performing Organization Address [facility]/ZIP Co de Phone Number [facility] [address] [place] [phone] * Chlamydia/N. Gonorrhoeae RNA, TMA, Urogenitial (10/09/2024 11:19 AM EDT) CT PCR NOT DETECTED Not Detect. [facility] Comment:A not detected test [...] psychologicalconsequences. NG PCR NOT DETECTED Not Detect. [facility] Comment:A not detected test [...] 11:19 AM EDT 10/09/2024 4:27 PM EDT Narrative [facility] - 10/09/2024 7:35 PM EDT Vaginal us Kristy Cain MD LAB MICROBIOLOGY - GENERAL ORD ERABLES Final Result [facility] [address] [place] [address] [phone] * Pap Smear (10/09/2024 11:19 AM EDT) 10/09/2024 11:1 9 AM EDT 10/12/2024 8:15 AM EDT [facility] - 10/15/2024 3:29 PM EDT ----- ------- Name: Elvie Mills Age/Sex: 24/F : 2000 Unit#: [id number] Attend Dr: Kristy Cain Re10/09/24 Status: DEP REF Location: HO.HHCLNP Disch: ----- ------- SPEC : [id number] RECD: 10/12/24 STATUS: NIRALI CHILD NUM: [id number] BRENDA: 10/09/24-[address] [facility] [address]: Kristy Cain ENTERED: 10/12/24 SP TYPE: Pap [facility] OT : ORDERED: Pap Smear Interpretation Satisfactory for evaluation. [...] and HPV testing will be performed at [facility] (CLIA #[id number]), [address] [place] [address]. Testing for HPV was performed using the [...] detected. All professional services are performed by [facility] ([address] [place], [place] [id number]; ; CLIA #[id number]). The PAP Test is a screening procedure with the inherent possibility of both false negative and false positive results. Results should be interpreted in the context of historic and current clinical findings. Reliability of the PAP Test is enhanced by performing the test on a regular repetitive basis. CONTINUED ON NEXT PAGE ----- ------- Name: Elvie Mills Age/Sex: 24/ : 2000 Unit#: [id number] Attend Dr: Kristy Cain Re10/09/24 Status: DEP REF Location: HO.HHCLNP Disch: ----- ------- SPEC : [id number] RECD: 10/12/24 STATUS: NIRALI CHILD NUM: [id number] BRENDA: 10/09/24-[address] [facility] [address]: Kristy Cain ENTERED: 10/12/24 SP TYPE: Pap Smr [facility] DR: ORDERED: Pap Smear ----- ------- Signed (signature on file) TERESITA Nix (ASCP) 10/15/24 1529 ----- ------- END OF REPORT Kristy Cain MD LAB CYTOLOGY ORDERABLES Final Result [facility] [address] [place] [phone] * hCG, Total, Quantitative (10/07/2024 1:56 PM EDT) HCG Quantitative 6 mIU/mL [facility] Comment:Weeks post LMP Appro ximate hCG(Last Menstrual Period) Range (mIU/ml)3 - 4 weeks 9 - 1304 - 5 weeks 75 - 2,6005 - 6 weeks 850 - 20,8006 - 7 weeks 4000 - 100,2006 - 12 weeks 11,500 - 289,44855 - 16 weeks 18,300 - 137,23642 - 29 weeks (2nd trimester) 1,400 - 53,67271 - 41 weeks (3rd trimester) 940 - [...] 1:56 PM EDT 10/07/2024 4:14 PM EDT us Kristy Cain MD LAB BLOOD ORDERABLES Final Res ult [facility] [address] [place] [phone] from Last 3 Months Insurance [facility] Care Teams Medical Records Supervisor Relationship Specialty Start Date End Date Kristy Cain MD [address] [place] [phone] PCP - General Family Medicine 12/25/19
== END 2025-01-04 15:21 | disposition home or self-care (01) ==
LOC: HO.US 15:20
PROVIDERS: PCP General Practice; Visit Provider General Practice
DX: O41.8X10 Other specified disorders of amniotic fluid and membranes, first trimester, not applicable or unspecified (principal); Z3A.09 9 weeks gestation of pregnancy
CPT/HCPCS: 76801

== ENCOUNTER → 2025-01-04 15:48 | Outpatient (BNV) | payer OTHER, SELFPAY | PROVIDERS: PCP General Practice; Visit Provider Radiology Diagnostic Radiology | DX: Z3A.09 9 weeks gestation of pregnancy (principal) | CPT/HCPCS: 76801 ==